=== PATIENT | female | born 1990 | race Caucasian/White ===

== ENCOUNTER 2020-12-30 15:41 | Inpatient (IN) ==
[2020-12-30] MEDS ORDERED: SODIUM CHLORIDE 0.9% 1000ML 500 ML IV ONE (16:00)
[2020-12-30] MEDS ORDERED: dexAMETHasone**PF** 10 MG/ML VIAL IV ONE (16:00)
--- NOTE | 2020-12-30 16:04 | Emergency Department Note ---
Impression & Plan Hypoxia, COVID-19, Pneumonia ED Provider Note NAME: CAROL ANN LANDA AGE: 30 SEX: F : 1990 ARRIVES VIA: Walk-In INFORMANT: Patient ED PROVIDER(S): Srinath Marcelino DO CHIEF COMPLAINT: cough shortness of breath HPI: Patient is a 30-year-old female who presents the ER for cough and shortness of breath. Symptoms started 10 days ago. She is vaccinated and was tested for Covid and was positive. She notes her shortness of breath and trouble breathing has been getting significantly worse. She admits to fevers intermittently. Denies any belly pain, dysuria, urgency, or frequency. She was vaccinated with moderna. Rest does improve her symptoms and moving around makes him significantly worse. No history of COPD or asthma. ROS: See above HPI for pertinent positives & negatives. A total of 10 systems reviewed and were otherwise negative. PAST MEDICAL HISTORY:See Below PAST SURGICAL HISTORY:See Below FAMILY HISTORY:See Below SOCIAL HISTORY:See Below HOME MEDICATIONS:See Below ALLERGIES:See Below VITALS:See Below PHYSICAL EXAMINATION: GENERAL: Sitting up in bed, alert, ill-appearing, disheveled, moderate distress EYE EXAM: normal conjunctiva. PERRL and EOM's grossly intact. OROPHARYNX: mask in place LUNGS: Clear to auscultation. Normal chest wall mechanics HEART: no murmurs, S1 normal and S2 normal ABDOMEN: abdomen soft, non-tender, normo-active bowel sounds, no masses, no rebound or guarding. UPPER EXTREMITIES: upper extremities are grossly normal. LOWER EXTREMITIES: No pitting edema. Calves are equal bilateral NEURO EXAM: Normal sensorium, cranial nerves II-XII grossly intact, normal speech, no gross weakness of arms, no gross weakness of legs. MEDICAL DECISION MAKING: Patient is a 30-year-old female who presents the ER in respiratory distress. IV was established blood work was obtained. She found to be hypoxic at 80% on room air. She is vaccinated for Covid. She is tachycardic and tachypneic. She is placed on high flow nasal cannula after anoxia mass which was not maintaining oxygen saturations. Labs show no significant leukocytosis or anemia. BMP with slightly elevated sugar at 377. She was given IV insulin trend down to 54. Bilirubin LFTs was unremarkable. Troponin was negative. Lipase was normal. She Covid positive. Chest x-ray with bilateral infiltrates. She was given Dec adron and a small amount of fluids. She was updated bedside. Discussed with hospitalist patient was admitted for further work-up of her COVID-19 bilateral pneumonia and hypoxia. She did refuse to prone while she was in the ER per respiratory. Triage Nursing notes reviewed. Limited review of prior medical records performed Vital Signs: reviewed and remarkable for tachycardic, tachypneic and hypoxic Differential diagnosis: Differential diagnoses includes but is not limited to pneumonia, bronchitis, COPD/Asthma exacerbation, pneumothorax, pulmonary embolism, congestive heart failure, acute coronary syndrome ER treatment provided: See below Diagnostics interpreted by me: ECG: Sinus rhythm rate [address] ST depressions and T wave inversions in lead III QTC 449 septal Q waves Cardiac Monitoring: An order was placed for continuous cardiac monitoring. The monitor shows a rate of 92 with sinus rhythm. Laboratory studies: As stated above and show below. Imaging studies: Portable AP upright 1 view of the chest shows bilateral infiltrates Consultation(s): Discussed with Dr. Ivan Garcia for further evaluation Procedures: none Critical Care: I have personally spent 45 minutes of critical care time in the direct management of this patient. This includes bedside care, interpretation of diagnostic studies, and testing, discussion with consultants, patient, and family members, and other required patient management activities. This 45 minutes is in excess of all separately billable procedures. Past Med/Surg History Medical History Anxiety Anxiety disorder Cough Diabetes mellitus type 2, uncontrolled Dyslipidemia Heterozygous factor V Leiden mutation Low back pain Obesity PCOS (polycystic ovarian syndrome) Surgical History History of knee surgery Right Meniscus repaired 2009, Left Meniscus repaired 2013 History of tonsillectomy and adenoidectomy 2001 APPROX Family History Mother Depression Diabetes History of factor V Leiden mutation Ovarian cyst Grandmother (Maternal) Diabetes Grandmother (Paternal) Diabetes Father Hypertension Grandfather (Paternal) Myocardial infarction Denies family history of Ovarian cancer Prostate cancer Breast cancer Colorectal cancer Social History Smoking Status: Never smoker Second Hand Exposure: Yes; Hx Alcohol Use: Yes Hx Substance Use: No Preferred Language: Dutch Communication Ability: Effective Visual Impairment: No Limitations Hearing Ability: Normal Scrap Hooker Required: No marital status: Single Current Living Situation: Parent current occupational status: employed current occupation: [employer] Feels Safe at Home: Yes Childhood Exposure to Second-Hand Smoke: Yes Dental Care, Regularly: No Physical Activity Frequency: 3-4 Times per Week Seatbelt Use: always Sunscreen Use: Yes Allergies Allergies Allergy/AdvReac Type Severity Reaction Status Date / Time Cephalosporins Allergy Severe Hives Verified 12/30/20 18:51 cinnamon Allergy Severe Hives Verified 12/30/20 18:51 doxycycline Allergy Severe Hives Verified 12/30/20 18:51 moxifloxacin Allergy Severe HIVES Verified 12/30/20 18:51 guaifenesin [From Mucinex] Allergy Mild Unknown Verified 12/30/20 18:51 azithromycin AdvReac Unknown Verified 12/30/20 18:51 baclofen AdvReac tired and Verified 12/30/20 18:51 fatigue Home Meds Home Medications Medication Instructions Recorded Confirmed albuterol sulfate 90 mcg/actuation 2 puffs INHALATION Q4H PRN 03/30/19 12/30/20 aerosol inhaler lorazepam 0.5 mg tablet 0.5 mg PO DAILY PRN tab 08/17/20 12/30/20 Previous Rx's Medication Instructions Recorded lancets 33 gauge (OneTouch Delica #100 ea 03/05/19 Lancets) blood sugar diagnostic (Oneuch #180 ea 04/16/19 Verio test strips) cetirizine 10 mg tablet (Zyrtec) 10 mg PO DAILY #30 tab 11/03/19 glipizide 10 mg tablet 10 mg PO BID #180 tab 04/16/20 metformin 500 mg tablet,extended 1,000 mg PO BID #360 tab 04/16/20 release 24 hr levothyroxine 25 mcg tablet 25 mcg PO QAM #90 tab 04/23/20 fluticasone propionate 50 2 spray INTNAS DAILY #9.9 ml 07/06/20 mcg/actuation nasal spray,suspension (Flonase Allergy Relief) venlafaxine 75 mg capsule,extended 75 mg PO DAILY #90 cap 10/28/20 release 24 hr albuterol sulfate 90 mcg/actuation 2 puffs INH Q4H PRN #8.5 g 10/10/21 aerosol inhaler benzonatate 100 mg capsule 100 mg PO TID PRN #30 cap 12/29/20 (Tesstephenie Vizcaino) methylprednisolone 4 mg tablets in 4 mg PO DAILY #21 ea 12/29/20 a dose pack (Medrol (Thom)) Results & Data (ED) Vital Signs Vital Signs - 24 hr 12/30/20 15:47 12/30/20 16:25 12/30/20 16:34 Temperature 36.2 C L Temperature Source Temporal Artery Scan Pulse Rate 119 H Pulse Rate [Apical] 96 H Respiratory Rate 26 H 24 Respiratory Effort / Characteristics Blood Pressure 149/92 H Blood Pressure Mean 111 Pulse Oximetry 83 L 92 90 Oxygen Delivery Method Room Air Oxymask Oxymask Oxygen Flow Rate 5 6 Fraction of Inspired Oxygen Sepsis Recent Fever Within 48 Hours No Sepsis New/Unexplained Change in Mental Status No Sepsis Action Taken by Nursing Physician Notified 12/30/20 17:04 12/30/20 17:16 12/30/20 17:21 Temperature Temperature Source Pulse Rate Pulse Rate [Apical] 106 H 96 H Respiratory Rate 22 16 Respiratory Effort / Characteristics Non-Labored Spontaneous Blood Pressure Blood Pressure Mean Pulse Oximetry 89 L 90 91 Oxygen Delivery Method Oxymask High Flow Nasal Cannula Oxygen Flow Rate 11 50 50 Fraction of Inspired Oxygen 75 90 Sepsis Recent Fever Within 48 Hours Sepsis New/Unexplained Change in Mental Status Sepsis Action Taken by Nursing 12/30/20 19:08 12/30/20 19:47 Temperature Temperature Source Pulse Rate Pulse Rate [Apical] 103 H 111 H Respiratory Rate 20 20 Respiratory Effort / Characteristics Spontaneous Blood Pressure Blood Pressure Mean Pulse Oximetry 92 86 L Oxygen Delivery Method High Flow Nasal Cannula High Flow Nasal Cannula Oxygen Flow Rate 50 Fraction of Inspired Oxygen 90 Sepsis Recent Fever Within 48 Hours Sepsis New/Unexplained Change in Mental Status Sepsis Action Taken by Nursing Laboratory Data Result diagrams: 12/30/20 16:14 12/30/20 16:14 Lab Results 12/30/20 12/30/20 12/30/20 Range/Units 16:13 16:13 16:14 WBC 4.81 (4.8-10.8) K/uL RBC 5.32 (4.2-5.4) M/uL Hgb 15.2 (12.0-16.0) g/dL Hct 44.7 (37-47) % MCV 84.0 (80-100) fL MCH 28.6 (25-34) pg MCHC 34.0 (32-36) g/dL RDW Std Deviation 40.5 (36.4-46.3) fL RDW Coeff of Arnoldo 13.1 (11.5-14.5) % Plt Count 256 (130-400) K/uL MPV 9.9 (7.4-10.4) fL Immature Gran % (Auto) 0.8 % Neut % (Auto) 81.3 % Lymph % (Auto) 13.5 % [place] % (Auto) 4.4 % Eos % (Auto) 0.0 % Baso % (Auto) 0.0 % Neut # (Auto) 3.91 (1.4-6.5) K/uL Lymph # (Auto) 0.65 L (1.2-3.4) K/uL [place] # (Auto) 0.21 (0.11-0.59) K/uL Eos # (Auto) 0.00 (0-0.5) K/uL Baso # (Auto) 0.00 (0-0.2) K/uL Immature Gran # (Auto) 0.04 H (0.00-0.02) K/uL APTT (21.0-31.0) Seconds PTT Ratio Sodium (136-145) mmol/L Potassium (3.5-5.1) mmol/L Chloride (98-107) mmol/L Carbon Dioxide (21-32) mmol/L Anion Gap (3-11) BUN (7-18) mg/dl Creatinine (0.6-1.2) mg/dl Est Cr Clr Drug Dosing Est GFR ( Amer) ml/min Est GFR (Non-Af Amer) ml/min BUN/Creatinine Ratio (10-20) Glucose (70-99) mg/dl POC Glucose (70-99) mg/dl Calcium (8.5-10.1) mg/dl Phosphorus (2.5-4.9) mg/dl Magnesium (1.8-2.4) mg/dl Total Bilirubin (0.2-1) mg/dl AST (15-37) U/L ALT (12-78) U/L Alkaline Phosphatase (45-117) U/L Troponin I (0-0.045) ng/ml C-Reactive Protein (0-0.29) mg/dl Total Protein (6.4-8.2) gm/dl Albumin (3.4-5.0) gm/dl Globulin (2.5-4.0) gm/dl Albumin/Globulin Ratio (0.9-2) Lipase (73-393) U/L Beta-Hydroxybutyric Acd (0.2-2.81) mg/dl Procalcitonin (0-0.5) ng/ml TSH (0.300-4.500) uIu/ml COVID-19 Eval Order Covid19 at [facility] SARS-CoV-2 (PCR) POSITIVE A* (Negative) 12/30/20 12/30/20 12/30/20 Range/Units 16:14 16:14 16:14 WBC (4.8-10.8) K/uL RBC (4.2-5.4) M/uL Hgb (12.0-16.0) g/dL Hct (37-47) % MCV (80-100) fL MCH (25-34) pg MCHC (32-36) g/dL RDW Std Deviation (36.4-46.3) fL RDW Coeff of Arnoldo (11.5-14.5) % Plt Count (130-400) K/uL MPV (7.4-10.4) fL Immature Gran % (Auto) % Neut % (Auto) % Lymph % (Auto) % [place] % (Auto) % Eos % (Auto) % Baso % (Auto) % Neut # (Auto) (1.4-6.5) K/uL Lymph # (Auto) (1.2-3.4) K/uL [place] # (Auto) (0.11-0.59) K/uL Eos # (Auto) (0-0.5) K/uL Baso # (Auto) (0-0.2) K/uL Immature Gran # (Auto) (0.00-0.02) K/uL APTT 24.8 (21.0-31.0) Seconds PTT Ratio 0.9 Sodium 136 (136-145) mmol/L Potassium 4.1 (3.5-5.1) mmol/L Chloride 103 (98-107) mmol/L Carbon Dioxide 22 (21-32) mmol/L Anion Gap 11.0 (3-11) BUN 15 (7-18) mg/dl Creatinine 0.70 (0.6-1.2) mg/dl Est Cr Clr Drug Dosing Not Reportable Est GFR ( Amer) 132.9 ml/min Est GFR (Non-Af Amer) 114.6 ml/min BUN/Creatinine Ratio 20.7 H (10-20) Glucose 377 H* (70-99) mg/dl POC Glucose (70-99) mg/dl Calcium 9.7 (8.5-10.1) mg/dl Phosphorus 4.1 (2.5-4.9) mg/dl Magnesium 2.3 (1.8-2.4) mg/dl Total Bilirubin 0.6 (0.2-1) mg/dl AST 21 (15-37) U/L ALT 37 (12-78) U/L Alkaline Phosphatase 216 H (45-117) U/L Troponin I < 0.015 (0-0.045) ng/ml C-Reactive Protein 13.10 H (0-0.29) mg/dl Total Protein 8.3 H (6.4-8.2) gm/dl Albumin 2.9 L (3.4-5.0) gm/dl Globulin 5.4 H (2.5-4.0) gm/dl Albumin/Globulin Ratio 0.5 L (0.9-2) Lipase 164 (73-393) U/L Beta-Hydroxybutyric Acd 20.33 H (0.2-2.81) mg/dl Procalcitonin (0-0.5) ng/ml TSH 1.330 (0.300-4.500) uIu/ml COVID-19 Eval Order SARS-CoV-2 (PCR) (Negative) 12/30/20 12/30/20 12/30/20 Range/Units 16:14 17:48 19:01 WBC (4.8-10.8) K/uL RBC (4.2-5.4) M/uL Hgb (12.0-16.0) g/dL Hct (37-47) % MCV (80-100) fL MCH (25-34) pg MCHC (32-36) g/dL RDW Std Deviation (36.4-46.3) fL RDW Coeff of Arnoldo (11.5-14.5) % Plt Count (130-400) K/uL MPV (7.4-10.4) fL Immature Gran % (Auto) % Neut % (Auto) % Lymph % (Auto) % [place] % (Auto) % Eos % (Auto) % Baso % (Auto) % Neut # (Auto) (1.4-6.5) K/uL Lymph # (Auto) (1.2-3.4) K/uL [place] # (Auto) (0.11-0.59) K/uL Eos # (Auto) (0-0.5) K/uL Baso # (Auto) (0-0.2) K/uL Immature Gran # (Auto) (0.00-0.02) K/uL APTT (21.0-31.0) Seconds PTT Ratio Sodium (136-145) mmol/L Potassium (3.5-5.1) mmol/L Chloride (98-107) mmol/L Carbon Dioxide (21-32) mmol/L Anion Gap (3-11) BUN (7-18) mg/dl Creatinine (0.6-1.2) mg/dl Est Cr Clr Drug Dosing Est GFR ( Amer) ml/min Est GFR (Non-Af Amer) ml/min BUN/Creatinine Ratio (10-20) Glucose (70-99) mg/dl POC Glucose 254 H 255 H (70-99) mg/dl Calcium (8.5-10.1) mg/dl Phosphorus (2.5-4.9) mg/dl Magnesium (1.8-2.4) mg/dl Total Bilirubin (0.2-1) mg/dl AST (15-37) U/L ALT (12-78) U/L Alkaline Phosphatase (45-117) U/L Troponin I (0-0.045) ng/ml C-Reactive Protein (0-0.29) mg/dl Total Protein (6.4-8.2) gm/dl Albumin (3.4-5.0) gm/dl Globulin (2.5-4.0) gm/dl Albumin/Globulin Ratio (0.9-2) Lipase (73-393) U/L Beta-Hydroxybutyric Acd (0.2-2.81) mg/dl Procalcitonin 0.21 (0-0.5) ng/ml TSH (0.300-4.500) uIu/ml COVID-19 Eval Order SARS-CoV-2 (PCR) (Negative) 12/30/20 Range/Units 20:39 WBC (4.8-10.8) K/uL RBC (4.2-5.4) M/uL Hgb (12.0-16.0) g/dL Hct (37-47) % MCV (80-100) fL MCH (25-34) pg MCHC (32-36) g/dL RDW Std Deviation (36.4-46.3) fL RDW Coeff of Arnoldo (11.5-14.5) % Plt Count (130-400) K/uL MPV (7.4-10.4) fL Immature Gran % (Auto) % Neut % (Auto) % Lymph % (Auto) % [place] % (Auto) % Eos % (Auto) % Baso % (Auto) % Neut # (Auto) (1.4-6.5) K/uL Lymph # (Auto) (1.2-3.4) K/uL [place] # (Auto) (0.11-0.59) K/uL Eos # (Auto) (0-0.5) K/uL Baso # (Auto) (0-0.2) K/uL Immature Gran # (Auto) (0.00-0.02) K/uL APTT (21.0-31.0) Seconds PTT Ratio Sodium (136-145) mmol/L Potassium (3.5-5.1) mmol/L Chloride (98-107) mmol/L Carbon Dioxide (21-32) mmol/L Anion Gap (3-11) BUN (7-18) mg/dl Creatinine (0.6-1.2) mg/dl Est Cr Clr Drug Dosing Est GFR ( Amer) ml/min Est GFR (Non-Af Amer) ml/min BUN/Creatinine Ratio (10-20) Glucose (70-99) mg/dl POC Glucose 254 H (70-99) mg/dl Calcium (8.5-10.1) mg/dl Phosphorus (2.5-4.9) mg/dl Magnesium (1.8-2.4) mg/dl Total Bilirubin (0.2-1) mg/dl AST (15-37) U/L ALT (12-78) U/L Alkaline Phosphatase (45-117) U/L Troponin I (0-0.045) ng/ml C-Reactive Protein (0-0.29) mg/dl Total Protein (6.4-8.2) gm/dl Albumin (3.4-5.0) gm/dl Globulin (2.5-4.0) gm/dl Albumin/Globulin Ratio (0.9-2) Lipase (73-393) U/L Beta-Hydroxybutyric Acd (0.2-2.81) mg/dl Procalcitonin (0-0.5) ng/ml TSH (0.300-4.500) uIu/ml COVID-19 Eval Order SARS-CoV-2 (PCR) (Negative) Administered Medications Baricitinib (Baricitinib 2 Mg Tab) 4 mg PO DAILY ARNOL Stop: 01/13/21 20:14 Last Admin: 12/30/20 20:44 Dose: 4 mg Documented by: [id number] Insulin Human Regular 250 (units/ Sodium Chloride) 250 mls @ 5.5 mls/hr IV .Q24H ARNOL; Protocol Stop: 01/29/21 17:29 Last Titration: 12/30/20 19:16 Dose: 5.5 units/hr, 5.5 mls/hr Documented by: [id number] Cosigned by: [id number] Admin: 12/30/20 18:10 Dose: 4.6 units/hr, 4.6 mls/hr Documented by: [id number] Cosigned by: [id number] Discontinued Medications Dexamethasone Sodium Phosphate (DexamethasonePf 10 Mg/Ml Vial) 8 mg IV NOW ONE Stop: 12/30/20 16:01 Last Admin: 12/30/20 16:23 Dose: 8 mg Documented by: [id number] Sodium Chloride (Nss 1000ml) 500 mls @ 999 mls/hr IV .Q31M ONE Stop: 12/30/20 16:30 Last Infusion: 12/30/20 17:04 Dose: 0 mls/hr Documented by: [id number] Admin: 12/30/20 16:23 Dose: 999 mls/hr Documented by: [id number] Remdesivir 200 mg/ Sodium (Chloride) 250 mls @ 125 mls/hr IV ONE ONE; Protocol Stop: 12/30/20 20:44 Last Infusion: 12/30/20 20:09 Dose: 0 mls/hr Documented by: [id number] Admin: 12/30/20 19:44 Dose: 125 mls/hr Documented by: [id number] Insulin Human Regular (Novolin-R Bolus From Bag) 4.5 units IV ONE ONE Stop: 12/30/20 17:31 Last Admin: 12/30/20 18:11 Dose: 4.5 units Documented by: [id number] Cosigned by: [id number] Insulin Human Regular (Novolin-R Insulin Per Unit Charge) 4 units IV NOW STA Stop: 12/30/20 17:35 Last Admin: 12/30/20 18:10 Dose: Not Given Documented by: [id number] Sodium Chloride (Sodium Chloride 0.9% 10ml Flush) 30 ml IV Q24H ARNOL Stop: 01/03/21 18:46 Last Admin: 12/30/20 20:24 Dose: 30 ml Documented by: [id number] Imaging Data Radiologist's Impression: Chest X-Ray 12/30/20 16:00 XR chest 1V portable HISTORY: Atypical Chest Pain COMPARISON: Chest 03/30/2019. FINDINGS: No pneumothorax. No pleural effusions. The heart remains mildly enlarged. There are extensive patchy perihilar airspace opacities. There are low lung volumes. IMPRESSION: Extensive bilateral airspace opacities likely representing a viral pneumonia. ACT 112: Negative or not required by law. Electronically signed by: Rufus Kumar M.D. 12/30/2020 4:57 PM Discharge Plan Visit Data Chief Complaint: Shortness of Breath/Dyspnea Stated Complaint: COVID, CANT BREATHE ED Provider: Srinath Marcelino Discharge Problem: Hypoxia, COVID-19, Pneumonia Forms Stand Alone Forms: My [facility] Prescriptions Prescriptions: No Action cetirizine [Zyrtec] 10 mg tablet 10 mg PO DAILY Qty: 30 RF: 3 levothyroxine 25 mcg tablet 25 mcg PO QAM Qty: 90 RF: 0 venlafaxine 75 mg capsule,extended release 24hr 75 mg PO DAILY Qty: 90 RF: 1 methylprednisolone [Medrol (Thom)] 4 mg tablets,dose pack 4 mg PO DAILY Qty: 21 RF: 0 benzonatate [Tessalon Perles] 100 mg capsule 100 mg PO TID PRN (Reason: cough) Qty: 30 RF: 0 fluticasone propionate [Flonase Allergy Relief] 50 mcg/actuation spray,suspension 2 spray INTNAS DAILY Qty: 9.9 RF: 3 (DME) OneTouch Verio test strips Strip See Rx Instructions .ROUTE .MEDSUPPLY Qty: 180 RF: 3 glipizide 10 mg tablet 10 mg PO BID Qty: 180 RF: 3 metformin 500 mg tablet extended release 24 hr 1,000 mg PO BID Qty: 360 RF: 3 lorazepam 0.5 mg tablet 0.5 mg PO DAILY PRN (Reason: Anxiety) RF: 0 (DME) lancets [OneTouch Delica Lancets] 33 gauge misc See Dose Instructions .ROUTE .MEDSUPPLY Qty: 100 RF: 0 albuterol sulfate 90 mcg/actuation HFA aerosol inhaler 2 puffs inhalation Q4H PRN (Reason: Shortness Of Breath Or Wheezing) RF: 0 albuterol sulfate 90 mcg/actuation HFA aerosol inhaler 2 puffs INH Q4H PRN (Reason: cough) Qty: 8.5 RF: 0 Referrals Referrals: Pinky Webb MD [Primary Care Provider] - Discharge Problem: Pneumonia Qualifiers: Pneumonia type: due to unspecified organism Laterality: bilateral Lung locati on: unspecified part of lung Qualified Code(s): J18.9 - Pneumonia, unspecified organism
[2020-12-30 16:33] LABS: Hematocrit (blood only) 44.7 % (37-47); Hemoglobin 15.2 g/dL (12.0-16.0); Immature Granulocytes # (auto) 0.04 K/uL (0.00-0.02); Immature Granulocytes % (auto) 0.8 %; Lymphocytes # (auto) 0.65 K/uL (1.2-3.4); Lymphocytes % (auto) 13.5 %; Mean Corpuscular Hemoglobin 28.6 pg (25-34); Mean Platelet Volume 9.9 fL (7.4-10.4); Monocytes # (auto) 0.21 K/uL (0.11-0.59); Monocytes % (auto) 4.4 %; Neutrophils # (auto) 3.91 K/uL (1.4-6.5); Neutrophils % (auto) 81.3 %; Platelet Count 256 K/uL (130-400); RDW Coefficient of Variation 13.1 % (11.5-14.5); RDW Standard Deviation 40.5 fL (36.4-46.3); Red Blood Count 5.32 M/uL (4.2-5.4); White Blood Count 4.81 K/uL (4.8-10.8)
[2020-12-30 16:49] LABS: Partial Thromboplastin Ratio 0.9; Partial Thromboplastin Time 24.8 Seconds (21.0-31.0)
--- NOTE | 2020-12-30 16:59 | XRay Report ---
XR chest 1V portable HISTORY: Atypical Chest Pain COMPARISON: Chest 03/30/2019. FINDINGS: No pneumothorax. No pleural effusions. The heart remains mildly enlarged. There are extensi ve patchy perihilar airspace opacities. There are low lung volumes. IMPRESSION: Extensive bilateral airspace opacities likely representing a viral pneumonia. ACT 112: Negative or not required by law. Electronically signed by: Rufus Kumar M.D. 12/30/2020 4:57 PM
[2020-12-30 17:03] LABS: Alanine Aminotransferase 37 U/L (12-78); Albumin Globulin Ratio 0.5 (0.9-2); Albumin Level 2.9 gm/dl (3.4-5.0); Alkaline Phosphatase 216 U/L (45-117); Aspartate Aminotransferase 21 U/L (15-37); BUN Creatinine Ratio 20.7 (10-20); Bilirubin,Total 0.6 mg/dl (0.2-1); Blood Urea Nitrogen 15 mg/dl (7-18); Calcium 9.7 mg/dl (8.5-10.1); Carbon Dioxide 22 mmol/L (21-32); Chloride 103 mmol/L (98-107); Est GFR (African American) 132.9 ml/min; Est GFR (Non-African American) 114.6 ml/min; Globulin 5.4 gm/dl (2.5-4.0); Glucose 377 mg/dl (70-99); Lipase 164 U/L (73-393); Potassium 4.1 mmol/L (3.5-5.1); Sodium 136 mmol/L (136-145); Total Protein 8.3 gm/dl (6.4-8.2); Troponin I < 0.015 ng/ml (0-0.045)
[2020-12-30 17:17] LABS: Beta-Hydroxybutyrate 20.33 mg/dl (0.2-2.81)
[2020-12-30] MEDS ORDERED: INSULIN PROTOCOL GOAL RANGE ONE (17:22)
[2020-12-30] MEDS ORDERED: STAT IV Infusion **Titration per Protocol STA ×2 (17:22→17:24)
[2020-12-30] MEDS ORDERED: SEVERE STRESS LEVEL ONE (17:24)
[2020-12-30] MEDS ORDERED: GLUCOSE 10 TABS/TUBE PO PRN (17:30)
[2020-12-30] MEDS ORDERED: GLUCAGON FOR INJ 1 MG VIAL IM PRN (17:30)
[2020-12-30] MEDS ORDERED: DEXTROSE 50% 50 ML SYRINGE IV PRN (17:30)
[2020-12-30] MEDS ORDERED: GLUCOSE 40% GEL 15 GM TUBE PO PRN (17:30)
[2020-12-30] MEDS ORDERED: NovoLIN-R BOLUS FROM BAG IV ONE (17:30)
--- NOTE | 2020-12-30 17:32 | History & Physical Report ---
Date of Service December 30, 2020 Assessment & Plan (1) Acute respiratory failure with hypoxia: Plan: 30 y/o covid vaccinated female w/ morbid obesity who presents w/ covid pneumonia on day 10 of symptoms. - desat to 83 on room air, ~90 on high flow nasal cannula 12L at time of exam - cxr w/ extensive bilat airspace opacities suggestive of viral pneumonia. no CT chest ordered at this time. repeat cxr ordered for AM - IV dexamethasone 6 daily - considered Remdesivir, as onset of symptoms was on 12/18/20. - meets criteria for Baracitinib; CRP 13.10. consulted pulmonology - considered Mucinex; patient has unknown mild allergy listed, will need to clarify (2) COVID-19: Plan: - see above - no concern for superimposed bacterial infection at this time; patient does have multiple abx allergies (3) Diabetes mellitus type 2, uncontrolled: Plan: - BSG in the 300s and serum ketones elevated. no anion gap - glycemic consult - insulin drip, goal BSG 140-180 - hold home PO regimen (4) Heterozygous factor V Leiden mutation: Plan: - no prior VTE hx - slightly elevated VTE risk at baseline; prior to starting Baracitinib, discussed w/ pulm and pharmacy (5) Hypothyroidism: Plan: - continue home levothyroxine (6) Obesity: Plan: - chronic (7) PCOS (polycystic ovarian syndrome): Plan: - chronic (8) Anxiety disorder: Plan: - continue home venlafaxine Plan: FEN/GI: DM2. No maintenance IV fluids. ppx: Lovenox 40mg SQ BID (120.6kg, 40.4 BMI) code: full dispo: PCU Admission and Anticipated Discharge Date Admission Date: I personally saw and examined the patient. I verified all underwood points and agree with Resident physician Dr Deepak Osorio with the following exceptions and/or additions: 30 year old female presents to the ER with COVID-19 pneumonia. Vaccinated with Moderna vaccine with second dose given in May. 9-10 days through illness. O/E resting comfortably now on high flow O2, Using accessory muscles, able to speak in complete sentences. Fine crackles throughout. A/P COVID-19 pneumonia - Dexamethasone 6mg IV daily. Initially remdesivir ordered but discontinued on consultation with pulmonology. Consult pulmonology for baricitinib authorization. Acute hypoxic respiratory failure - high flow O2 to aim sats > 90%. Procalcitonin negative. Low tolerance for CT for PE if she declines although given CXR findings and elevated CRP suspect this is all COVID PNA with ARDS. T2DM - given glucose already 377 prior to steroids given elect to give insulin drip for initial control and switch to basal bolus tomorrow once controlled. Aim BSG 140-180 due to critical illness. VTE Prophylaxis - Lovenox 40 mg SQ BID Full code History of Present Illness Chief Complaint: COVID pneumonia Primary Care Provider: Pinky Irby MD Anita Esparza is a 30 y/o female w/ PMHx of obesity, PCOS, rosacea, heterozygous factor V Leiden, HLD, uncontrolled DM2, anxiety/depression, and hypothyroidism who presents w/ worsening cough and dyspnea x 10 days. Patient is vaccinated w/ Moderna and tested covid positive. She initially started w/ sinus symptoms. Several days later, she developed fevers up to 104F. Fevers resolved 2 days ago. In the past several days, her complaint has been worsening dyspnea on exertion. Cough is nonproductive and has improved slightly. + decreased smell, but regaining. She has had poor appetite and has stopped taking her PO diabetes medications for almost a week. She has taken ~1 day of Medrol dose pack in the outpatient setting after seeing her PCP via telehealth yesterday. Denies hx of COPD and has never smoked tobacco. Patient's listed asthma is situational and mostly related to environment triggers specifically cinnamon. S/p dose of 8mg IV dexamethasone in ED. Allergies Allergy/AdvReac Type Severity Reaction Status Date / Time Cephalosporins Allergy Severe Hives Verified 12/30/20 18:51 cinnamon Allergy Severe Hives Verified 12/30/20 18:51 doxycycline Allergy Severe Hives Verified 12/30/20 18:51 moxifloxacin Allergy Severe HIVES Verified 12/30/20 18:51 guaifenesin [From Mucinex] Allergy Mild Unknown Verified 12/30/20 18:51 azithromycin AdvReac Unknown Verified 12/30/20 18:51 baclofen AdvReac tired and Verified 12/30/20 18:51 fatigue Home Medications Medication Instructions Recorded Confirmed Type lancets 33 gauge (OneTouch Delica #100 ea 03/05/19 10/01/20 Rx Lancets) albuterol sulfate 90 mcg/actuation 2 puffs INHALATION Q4H PRN 03/30/19 12/30/20 History aerosol inhaler blood sugar diagnostic (OneTouch #180 ea 04/16/19 10/01/20 Rx Verio test strips) cetirizine 10 mg tablet (Zyrtec) 10 mg PO DAILY #30 tab 11/03/19 12/30/20 Rx glipizide 10 mg tablet 10 mg PO BID #180 tab 04/16/20 12/30/20 Rx metformin 500 mg tablet,extended 1,000 mg PO BID #360 tab 04/16/20 12/30/20 Rx release 24 hr levothyroxine 25 mcg tablet 25 mcg PO QAM #90 tab 04/23/20 12/30/20 Rx fluticasone propionate 50 2 spray INTNAS DAILY #9.9 ml 07/06/20 12/30/20 Rx mcg/actuation nasal spray,suspension (Flonase Allergy Relief) lorazepam 0.5 mg tablet 0.5 mg PO DAILY PRN tab 08/17/20 12/30/20 History venlafaxine 75 mg capsule,extended 75 mg PO DAILY #90 cap 10/28/20 12/30/20 Rx release 24 hr albuterol sulfate 90 mcg/actuation 2 puffs INH Q4H PRN #8.5 g 12/26/20 12/30/20 Rx aerosol inhaler benzonatate 100 mg capsule 100 mg PO TID PRN #30 cap 12/29/20 12/30/20 Rx (Parish Vizcaino) methylprednisolone 4 mg tablets in 4 mg PO DAILY #21 ea 12/29/20 12/30/20 Rx a dose pack (Medrol (Thom)) Past Med/Surg History Medical History Anxiety Anxiety disorder Cough Diabetes mellitus type 2, uncontrolled Dyslipidemia Heterozygous factor V Leiden mutation Low back pain Obesity PCOS (polycystic ovarian syndrome) Surgical History History of knee surgery Right Meniscus repaired 2009, Left Meniscus repaired 2013 History of tonsillectomy and adenoidectomy 2000 APPROX Family History Mother Depression Diabetes History of factor V Leiden mutation Ovarian cyst Grandmother (Maternal) Diabetes Grandmother (Paternal) Diabetes Father Hypertension Grandfather (Paternal) Myocardial infarction Denies family history of Ovarian cancer Prostate cancer Breast cancer Colorectal cancer Social History Smoking Status: Never smoker Second Hand Exposure: Yes; Hx Alcohol Use: Yes Alcohol type: beer Hx Substance Use: No Preferred Language: Greek Communication Ability: Effective Visual Impairment: No Limitations Hearing Ability: Normal Optical Effects Line Up Person Required: No Beliefs That Will Affect Care: None marital status: Single Current Living Situation: Spouse current occupational status: employed current occupation: [employer] Other Information That Helps Us Care for You: No Feels Safe at Home: Yes Safety Concerns: Feels Safe At This Time Childhood Exposure to Second-Hand Smoke: Yes Dental Care, Regularly: No Physical Activity Frequency: 3-4 Times per Week Seatbelt Use: always Sunscreen Use: Yes Assistive Devices: Glasses Review of Systems Review of Systems: All systems reviewed & are unremarkable except as noted in HPI & below Constitutional: Subj fever, rigors, chills, since resolved. No recent unintentional wt changes. Eyes: Denies blurry vision, vision changes ENT: + sore throat Cardiovascular: Denies chest pain, palpitations Respiratory: + CARROLL, worse w/ supine. + cough, nonproductive Gastrointestinal: Denies abdominal pain, nausea, vomiting, constipation, diarrhea Genitourinary: Denies urinary symptoms including dysuria Musculoskeletal: Denies weakness, joint aches/pain. Has some back pain and rib pain, attributs to coughing Neurological: Denies headache, numbness, tingling, focal weakness Physical Exam Physical Exam: General: Grossly A&O. NAD. Cooperative. HEENT: Atraumatic, normocephalic. EOMI. PERRL. Erythematous uvula. No exudates. s/p tonsillectomy/adenoidectomy. Pulm: Trace insp crackles at bases. Overall slightly decreased air entry. No accessory muscle use. No respiratory distress. Wearing high flow. Cardiac: RRR, -mrg. Radial pulses intact and symmetrical. Abdominal: Nontender, nondistended, soft. Obese abd, at baseline. Neuro: Normal strength and sensation of extremtiies. Integ: Warm, dry, intact Results & Data Results & Data ([place]) Vital Signs (Past 12 Hours) Vital Signs Temp Pulse Pulse Resp BP Pulse Ox 12/30/20 17:21 91 12/30/20 17:16 96 H 16 90 12/30/20 17:04 106 H 22 89 L 12/30/20 16:34 96 H 24 90 12/30/20 16:25 92 12/30/20 15:47 36.2 C L 119 H 26 H 149/92 H 83 L Laboratory Results tachycardic to 100s. Afebrile. Sats down to 83 on RA, now on HF sat 90 q/ 50% FiO2. No leukocytosis or anemia. Electrolytes ok. Cr 0.70. BSG 380. alk phos 216. trop neg x1. BHA 20.33H 12/30/20 16:14 12/30/20 16:14 Cardiac Enzymes 12/30/20 Range/Units 16:14 AST 21 (15-37) U/L Troponin I < 0.015 (0-0.045) ng/ml Coagulation 12/30/20 Range/Units 16:14 APTT 24.8 (21.0-31.0) Seconds CBC 12/30/20 Range/Units 16:14 WBC 4.81 (4.8-10.8) K/uL RBC 5.32 (4.2-5.4) M/uL Hgb 15.2 (12.0-16.0) g/dL Hct 44.7 (37-47) % Plt Count 256 (130-400) K/uL Neut # (Auto) 3.91 (1.4-6.5) K/uL Lymph # (Auto) 0.65 L (1.2-3.4) K/uL Prentiss # (Auto) 0.21 (0.11-0.59) K/uL Eos # (Auto) 0.00 (0-0.5) K/uL Baso # (Auto) 0.00 (0-0.2) K/uL Comprehensive Metabolic Panel 12/30/20 Range/Units 16:14 Sodium 136 (136-145) mmol/L Potassium 4.1 (3.5-5.1) mmol/L Chloride 103 (98-107) mmol/L Carbon Dioxide 22 (21-32) mmol/L BUN 15 (7-18) mg/dl Creatinine 0.70 (0.6-1.2) mg/dl Glucose 377 H* (70-99) mg/dl Calcium 9.7 (8.5-10.1) mg/dl AST 21 (15-37) U/L ALT 37 (12-78) U/L Alkaline Phosphatase 216 H (45-117) U/L Total Protein 8.3 H (6.4-8.2) gm/dl Albumin 2.9 L (3.4-5.0) gm/dl Intake and Output 12/30/20 12/30/20 12/31/20 14:59 22:59 06:59 Intake Total 557.143 / 584.368 27.225 / 584.368 Balance 557.143 / 584.368 27.225 / 584.368 Intake: IV 557.143 / 584.368 27.225 / 584.368 Insulin Regular 250 units In 5.06 / 32.285 27.225 / 32.285 Sodium Chloride 0.9% 247.5 ml @ 5.5 UNITS/HR 5.5 mls/hr IV . Q24H [facility] Rx#:[id number] Remdesivir 200 mg In Sodium 52.083 / 52.083 Chloride 0.9% 210 ml @ 125 mls/ hr IV ONE ONE Rx#:[id number] Sodium Chloride 0.9% 1000ML 500 500 / 500 ml @ 999 mls/hr IV .Q31M ONE Rx#:[id number] Other: # Unmeasured Voids 1 Weight 120.6 kg Weight Measurement Method Built in [facility] Patient Weight 12/31/20 06:59 Weight 120.6 kg Diagnostic Findings Chest X-Ray 12/30/20 16:00 XR chest 1V portable HISTORY: Atypical Chest Pain COMPARISON: Chest 03/30/2019. FINDINGS: No pneumothorax. No pleural effusions. The heart remains mildly enlarged. There are extensive patchy perihilar airspace opacities. There are low lung volumes. IMPRESSION: Extensive bilateral airspace opacities likely representing a viral pneumonia. ACT 112: Negative or not required by law. Electronically signed by: Rufus Kumar M.D. 12/30/2020 4:57 PM ECG Additional Comments: Vent. Rate : 095 BPM Atrial Rate : 095 BPM P-R Int : 148 ms QRS Dur : 082 ms QT Int : 358 ms P-R-T Axes : 031 -06 000 degrees QTc Int : 449 ms Normal sinus rhythm Septal infarct (cited on or before 24-APR-2009) Possible Inferior infarct (cited on or before 30-MAR-2019) Abnormal ECG When compared with ECG of 30-MAR-2019 19:15, Questionable change in initial forces of Anterior leads Nonspecific T wave abnormality no longer evident in Anterior leads Confirmed by Camacho Alvares ([id number]) on 12/30/2020 10:49:32 PM Code Status & VTE Plan Code Status full VTE Prophylaxis Plan VTE Prophylaxis will be ordered: Yes Resident Activity Tracking Resident Involvement: Resident Care Provided Care Provided: Adult Hospital Medicine
[2020-12-30] MEDS ORDERED: NovoLIN-R INSULIN PER UNIT CHARGE IV STA (17:34)
[2020-12-30 18:06] LABS: C Reactive Protein 13.1 mg/dl (0-0.29); Magnesium 2.3 mg/dl (1.8-2.4); Phosphorus 4.1 mg/dl (2.5-4.9); Thyroid Stimulating Hormone 1.33 uIu/ml (0.300-4.500)
[2020-12-30] MEDS: INSULIN REGULAR 250 UNITS in SODIUM CHLORIDE 0.9% 247.5 ML IV SCH (18:10)
[2020-12-30] MEDS ORDERED: REMDESIVIR 200 MG in SODIUM CHLORIDE 0.9% 210 ML IV ONE (18:45)
[2020-12-30] MEDS ORDERED: SODIUM CHLORIDE 0.9% 10ML FLUSH IV SCH (18:45)
[2020-12-30] MEDS: BARICITINIB 2 MG TAB PO SCH (20:44)
[2020-12-30] MEDS ORDERED: PHARMACY GLYCEMIC MGMT CONSULT PRN (22:30)
--- NOTE | 2020-12-30 22:49 | Electrocardiogram Report ---
Test Reason : Blood Pressure : / mmHG Vent. Rate : 095 BPM Atrial Rate : 095 BPM P-R Int : 148 ms QRS Dur : 082 ms QT Int : 358 ms P-R-T Axes : 031 -06 000 degrees QTc Int : 449 ms Normal sinus rhythm Septal infarct (cited on or before 24-APR-2009) Possible Inferior infarct (cited on or before 30-MAR-2019) Abnormal ECG When compared with ECG of 30-MAR-2019 19:15, Questionable change in initial forces of Anterior leads Nonspecific T wave abnormality no longer evident in Anterior leads Confirmed by Camacho Alvares ([id number]) on 12/30/2020 10:49:32 PM Referred By: Confirmed By:Camacho Alvares
[2020-12-31] MEDS ORDERED: LANTUS PER UNIT CHARGE SQ SCH
[2020-12-31] MEDS: ENOXAPARIN INJ 40 MG/0.4 ML SYR SQ SCH ×3 (00:17→20:23)
[2020-12-31] MEDS: INSULIN ASPART 100 UNITS/ML 3 ML PEN SC SCH ×5 (00:32→21:24)
[2020-12-31] MEDS: SODIUM CHLORIDE 0.9% 10ML FLUSH IV SCH ×2 (00:32→20:17)
[2020-12-31] MEDS: LEVOTHYROXINE SODIUM 25 MCG TABLET PO SCH (06:01)
[2020-12-31 06:24] LABS: Basophils # (auto) 0.01 K/uL (0-0.2); Basophils % (auto) 0.3 %; Hemoglobin 13.1 g/dL (12.0-16.0); Immature Granulocytes # (auto) 0.02 K/uL (0.00-0.02); Immature Granulocytes % (auto) 0.6 %; Lymphocytes # (auto) 0.87 K/uL (1.2-3.4); Lymphocytes % (auto) 24.7 %; Mean Corpuscular Hemoglobin 28.2 pg (25-34); Mean Corpuscular Hgb Conc 33.6 g/dL (32-36); Mean Corpuscular Volume 83.9 fL (80-100); Mean Platelet Volume 9.4 fL (7.4-10.4); Monocytes # (auto) 0.53 K/uL (0.11-0.59); Monocytes % (auto) 15.1 %; Neutrophils # (auto) 2.09 K/uL (1.4-6.5); Neutrophils % (auto) 59.3 %; Platelet Count 271 K/uL (130-400); RDW Standard Deviation 39.1 fL (36.4-46.3); Red Blood Count 4.65 M/uL (4.2-5.4); White Blood Count 3.52 K/uL (4.8-10.8)
[2020-12-31 07:24] LABS: Alanine Aminotransferase 27 U/L (12-78); Albumin Globulin Ratio 0.5 (0.9-2); Albumin Level 2.3 gm/dl (3.4-5.0); Alkaline Phosphatase 161 U/L (45-117); Aspartate Aminotransferase 12 U/L (15-37); BUN Creatinine Ratio 46.6 (10-20); Bilirubin,Total 0.4 mg/dl (0.2-1); Blood Urea Nitrogen 17 mg/dl (7-18); Calcium 8.9 mg/dl (8.5-10.1); Carbon Dioxide 22 mmol/L (21-32); Chloride 108 mmol/L (98-107); Creatinine Clr Calc Pharmacy 298.4 ml/min; Est GFR (African American) > 150.0 ml/min; Est GFR (Non-African American) 141.4 ml/min; Globulin 4.4 gm/dl (2.5-4.0); Glucose 220 mg/dl (70-99); Potassium 3.8 mmol/L (3.5-5.1); Sodium 139 mmol/L (136-145); Total Protein 6.7 gm/dl (6.4-8.2)
[2020-12-31 07:26] LABS: Estimated Average Glucose 280 mg/dl; Hemoglobin A1C 11.4 % (4.5-5.6)
--- NOTE | 2020-12-31 07:38 | XRay Report ---
XR chest 1V portable HISTORY: 30 years-old Female covid pneumonia acute shortness of breath with pneumonia COMPARISON: Chest radiograph 12/30/2020 TECHNIQUE: Portable AP view of the chest FINDINGS: Cardiac silhouette is mildly enlarged, unchanged. Extensive bilateral airspace opacities redemonstrat ed and appear stable to mildly improved. Unchanged mild right hemidiaphragmatic elevation. No acute f racture. Unchanged cortical thickening of the distal right clavicle. IMPRESSION: Stable to mildly improved extensive bilateral airspace opacities compatible with viral pn eumonia. ACT 112: Negative or not required by law. The above report was generated using voice recognition software. It may contain grammatical, syntax o r spelling errors. Electronically signed by: Rc Chao M.D. 12/31/2020 7:36 AM
[2020-12-31] MEDS ORDERED: INSULIN GLARGINE SOLOSTAR 100 UNITS/ML 3 ML PEN SC ONE (09:00)
[2020-12-31] MEDS ORDERED: FUROSEMIDE 20 MG in SYRINGE 0 ML IV ONE (09:05)
[2020-12-31] MEDS: dexAMETHasone 6 MG in SYRINGE 0 ML IV SCH (09:09)
[2020-12-31] MEDS: BARICITINIB 2 MG TAB PO SCH (09:09)
[2020-12-31] MEDS: VENLAFAXINE HCL XR 75 MG CAPXR PO SCH (09:10)
--- NOTE | 2020-12-31 09:17 | Hospitalist Progress Note ---
Date of Service December 31, 2020 Assessment & Plan (1) Acute respiratory failure with hypoxia: Plan: 30 y/o covid vaccinated female w/ morbid obesity who presents w/ covid pneumonia on day 10 of symptoms. - very high oxygen requirement at time of admission, currently at 60L and 100%, she in on her right side, tachypnea, accessory muscle use - will place a mayo, give Lasix 20mg IV, have her lay prone as much as possible will contact [facility] to discuss ECMO qualifications, see if they can take the patient before she gets worse continue treatment for COVID with dexamethasone, baricitinib (2) COVID-19: Plan: Moderna vaccine in April 2020 sick for about 10 days, worsening dyspnea the past 48 hours CXR with diffuse bilateral infiltrates dexamethasone 6mg IV daily baricitinib daily x 14 days Remdesivir per protocol call [facility] about ECMO (3) Diabetes mellitus type 2, uncontrolled: Plan: - BSG in the 300s and serum ketones elevated. no anion gap - glycemic consult - insulin drip, sugars down below 200 diabetic diet plan to transition to basal / bolus insulin regimen (4) Heterozygous factor V Leiden mutation: Plan: - no prior VTE hx - slightly elevated VTE risk at baseline; prior to starting Baracitinib, discussed w/ pulm and pharmacy Lovenox BID (5) Hypothyroidism: Plan: - continue home levothyroxine (6) Obesity: Plan: - chronic (7) PCOS (polycystic ovarian syndrome): Plan: - chronic (8) Anxiety disorder: Plan: - continue home venlafaxine Plan: FEN/GI: DM2. No maintenance IV fluids. 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, there was an outbreak there she is scared and tearful, says she has never been in the hospital before discussed getting mayo catheter so she does not move, don't want her desaturating and unable to recover she has been drinking a lot of fluids at home, no concern for dehydration, will give her a dose of Lasix once mayo in discussed laying prone, RN will get her on her stomach as much as possible, told her it can keep her from deteriorating encouraged her to take it one day at a time, she will be on steroids and baricitinib discussed that I will call [facility] to discuss ECMO with them, see if she qualifies discussed patient with Dr. Stapleton, he agrees with calling about ECMO hopeful that she plateaus at high flow or BIPAP Review of Systems Review of Systems: All systems reviewed & are unremarkable except as noted in Subjective Constitutional: + fatigue and + weakness; no fever, no chills and no sweats Respiratory: + cough, + dyspnea and + dyspnea on exertion; no sputum production Cardiovascular: no chest pain, no palpitations and no edema Gastrointestinal: no abdominal pain, no nausea, no vomiting, no constipation and no diarrhea/loose stools Physical Exam Physical Exam: General: well developed, well nourished, obese female, ill appearing Neck: supple, trachea midline, normal thyroid Lungs: crackles in bases, + tachypnea, + accessory muscle use, + cough Heart: regular S1 and S2, no murmur, peripheral pulses normal, capillary refill normal, no edema Abdomen: soft, NT, ND, + BS, no hepatomegaly, normal to percussion Extremities: normal in appearance, no cyanosis, no petechiae, strength is 5/5 bilaterally Neuro: awake, cooperative, moves all extremities, no focal motor deficits, CN II-XII intact, sensation in extremities intact, normal speech Skin: warm, dry, no rash, normal turgor Psych: Awake, alert oriented x 3, she is nervous and anxious Results & Data Results & Data ([facility]) Vital Signs (Past 12 Hours) Vital Signs Temp Pulse Pulse Pulse Resp BP BP 12/31/20 08:00 36.7 C 91 H 24 114/73 12/31/20 05:54 88 24 12/31/20 03:58 36.8 C 93 H 26 H 144/84 H 12/31/20 03:25 94 H 22 12/31/20 00:36 96 H 18 12/31/20 00:00 99 H 12/30/20 23:15 36.7 C 101 H 16 150/91 H 12/30/20 22:31 99 H 20 12/30/20 22:30 36.9 C 100 H 22 142/92 H 12/30/20 21:38 100 H 20 142/69 H Pulse Ox 12/31/20 08:00 87 L 12/31/20 05:54 88 L 12/31/20 03:58 91 12/31/20 03:25 88 L 12/31/20 00:36 88 L 12/31/20 00:00 12/30/20 23:15 89 L 12/30/20 22:31 89 L 12/30/20 22:30 93 12/30/20 21:38 89 L Laboratory Results Laboratory Results - last 24 hr 12/30/20 12/30/20 12/30/20 16:13 16:13 16:14 WBC 4.81 RBC 5.32 Hgb 15.2 Hct 44.7 MCV 84.0 MCH 28.6 MCHC 34.0 RDW Std Deviation 40.5 RDW Coeff of Arnoldo 13.1 Plt Count 256 MPV 9.9 Immature Gran % (Auto) 0.8 Neut % (Auto) 81.3 Lymph % (Auto) 13.5 Ponce % (Auto) 4.4 Eos % (Auto) 0.0 Baso % (Auto) 0.0 Neut # (Auto) 3.91 Lymph # (Auto) 0.65 L Ponce # (Auto) 0.21 Eos # (Auto) 0.00 Baso # (Auto) 0.00 Immature Gran # (Auto) 0.04 H APTT PTT Ratio Sodium Potassium Chloride Carbon Dioxide Anion Gap BUN Creatinine Est Cr Clr Drug Dosing Est GFR ( Amer) Est GFR (Non-Af Amer) BUN/Creatinine Ratio Glucose POC Glucose Estimat Average Glucose Hemoglobin A1c Calcium Phosphorus Magnesium Total Bilirubin AST ALT Alkaline Phosphatase Troponin I C-Reactive Protein Total Protein Albumin Globulin Albumin/Globulin Ratio Lipase Beta-Hydroxybutyric Acd Procalcitonin TSH COVID-19 Eval Order Covid19 at [facility] SARS-CoV-2 (PCR) POSITIVE A* 12/30/20 12/30/20 12/30/20 16:14 16:14 16:14 WBC RBC Hgb Hct MCV MCH MCHC RDW Std Deviation RDW Coeff of Arnoldo Plt Count MPV Immature Gran % (Auto) Neut % (Auto) Lymph % (Auto) Ponce % (Auto) Eos % (Auto) Baso % (Auto) Neut # (Auto) Lymph # (Auto) Ponce # (Auto) Eos # (Auto) Baso # (Auto) Immature Gran # (Auto) APTT 24.8 PTT Ratio 0.9 Sodium 136 Potassium 4.1 Chloride 103 Carbon Dioxide 22 Anion Gap 11.0 BUN 15 Creatinine 0.70 Est Cr Clr Drug Dosing Not Reportable Est GFR ( Amer) 132.9 Est GFR (Non-Af Amer) 114.6 BUN/Creatinine Ratio 20.7 H Glucose 377 H* POC Glucose Estimat Average Glucose Hemoglobin A1c Calcium 9.7 Phosphorus 4.1 Magnesium 2.3 Total Bilirubin 0.6 AST 21 ALT 37 Alkaline Phosphatase 216 H Troponin I < 0.015 C-Reactive Protein 13.10 H Total Protein 8.3 H Albumin 2.9 L Globulin 5.4 H Albumin/Globulin Ratio 0.5 L Lipase 164 Beta-Hydroxybutyric Acd 20.33 H Procalcitonin TSH 1.330 COVID-19 Eval Order SARS-CoV-2 (PCR) 12/30/20 12/30/20 12/30/20 16:14 16:14 17:48 WBC RBC Hgb Hct MCV MCH MCHC RDW Std Deviation RDW Coeff of Arnoldo Plt Count MPV Immature Gran % (Auto) Neut % (Auto) Lymph % (Auto) Ponce % (Auto) Eos % (Auto) Baso % (Auto) Neut # (Auto) Lymph # (Auto) Ponce # (Auto) Eos # (Auto) Baso # (Auto) Immature Gran # (Auto) APTT PTT Ratio Sodium Potassium Chloride Carbon Dioxide Anion Gap BUN Creatinine Est Cr Clr Drug Dosing Est GFR ( Amer) Est GFR (Non-Af Amer) BUN/Creatinine Ratio Glucose POC Glucose 254 H Estimat Average Glucose 280 Hemoglobin A1c 11.4 H Calcium Phosphorus Magnesium Total Bilirubin AST ALT Alkaline Phosphatase Troponin I C-Reactive Protein Total Protein Albumin Globulin Albumin/Globulin Ratio Lipase Beta-Hydroxybutyric Acd Procalcitonin 0.21 TSH COVID-19 Eval Order SARS-CoV-2 (PCR) 12/30/20 12/30/20 12/30/20 19:01 20:39 22:07 WBC RBC Hgb Hct MCV MCH MCHC RDW Std Deviation RDW Coeff of Arnoldo Plt Count MPV Immature Gran % (Auto) Neut % (Auto) Lymph % (Auto) Ponce % (Auto) Eos % (Auto) Baso % (Auto) Neut # (Auto) Lymph # (Auto) Ponce # (Auto) Eos # (Auto) Baso # (Auto) Immature Gran # (Auto) APTT PTT Ratio Sodium Potassium Chloride Carbon Dioxide Anion Gap BUN Creatinine Est Cr Clr Drug Dosing Est GFR ( Amer) Est GFR (Non-Af Amer) BUN/Creatinine Ratio Glucose POC Glucose 255 H 254 H 266 H Estimat Average Glucose Hemoglobin A1c Calcium Phosphorus Magnesium Total Bilirubin AST ALT Alkaline Phosphatase Troponin I C-Reactive Protein Total Protein Albumin Globulin Albumin/Globulin Ratio Lipase Beta-Hydroxybutyric Acd Procalcitonin [facility] COVID-19 Eval Order SARS-CoV-2 (PCR) 12/30/20 12/31/20 12/31/20 23:09 00:08 01:10 WBC RBC Hgb Hct MCV MCH MCHC RDW Std Deviation RDW Coeff of Arnoldo Plt Count MPV Immature Gran % (Auto) Neut % (Auto) Lymph % (Auto) Ponce % (Auto) Eos % (Auto) Baso % (Auto) Neut # (Auto) Lymph # (Auto) Ponce # (Auto) Eos # (Auto) Baso # (Auto) Immature Gran # (Auto) APTT PTT Ratio Sodium Potassium Chloride Carbon Dioxide Anion Gap BUN Creatinine Est Cr Clr Drug Dosing Est GFR ( Amer) Est GFR (Non-Af Amer) BUN/Creatinine Ratio Glucose POC Glucose 236 H 309 H* 269 H Estimat Average Glucose Hemoglobin A1c Calcium Phosphorus Magnesium Total Bilirubin AST ALT Alkaline Phosphatase Troponin I C-Reactive Protein Total Protein Albumin Globulin Albumin/Globulin Ratio Lipase Beta-Hydroxybutyric Acd Procalcitonin [facility] COVID-19 Eval Order SARS-CoV-2 (PCR) 12/31/20 12/31/20 12/31/20 02:14 04:02 05:59 WBC RBC Hgb Hct MCV MCH MCHC RDW Std Deviation RDW Coeff of Arnoldo Plt Count MPV Immature Gran % (Auto) Neut % (Auto) Lymph % (Auto) Ponce % (Auto) Eos % (Auto) Baso % (Auto) Neut # (Auto) Lymph # (Auto) Ponce # (Auto) Eos # (Auto) Baso # (Auto) Immature Gran # (Auto) APTT PTT Ratio Sodium Potassium Chloride Carbon Dioxide Anion Gap BUN Creatinine Est Cr Clr Drug Dosing Est GFR ( Amer) Est GFR (Non-Af Amer) BUN/Creatinine Ratio Glucose POC Glucose 256 H 238 H 198 H Estimat Average Glucose Hemoglobin A1c Calcium Phosphorus Magnesium Total Bilirubin AST ALT Alkaline Phosphatase Troponin I C-Reactive Protein Total Protein Albumin Globulin Albumin/Globulin Ratio Lipase Beta-Hydroxybutyric Acd Procalcitonin [facility] COVID-19 Eval Order SARS-CoV-2 (PCR) 12/31/20 12/31/20 12/31/20 06:07 06:07 08:04 WBC 3.52 L RBC 4.65 Hgb 13.1 Hct 39.0 MCV 83.9 MCH 28.2 MCHC 33.6 RDW Std Deviation 39.1 RDW Coeff of Arnoldo 13.0 Plt Count 271 MPV 9.4 Immature Gran % (Auto) 0.6 Neut % (Auto) 59.3 Lymph % (Auto) 24.7 Ponce % (Auto) 15.1 Eos % (Auto) 0.0 Baso % (Auto) 0.3 Neut # (Auto) 2.09 Lymph # (Auto) 0.87 L Ponce # (Auto) 0.53 Eos # (Auto) 0.00 Baso # (Auto) 0.01 Immature Gran # (Auto) 0.02 APTT PTT Ratio Sodium 139 Potassium 3.8 Chloride 108 H Carbon Dioxide 22 Anion Gap 10.0 BUN 17 Creatinine 0.37 L D Est Cr Clr Drug Dosing 298.4 Est GFR ( Amer) > 150.0 Est GFR (Non-Af Amer) 141.4 BUN/Creatinine Ratio 46.6 H Glucose 220 H POC Glucose 186 H Estimat Average Glucose Hemoglobin A1c Calcium 8.9 Phosphorus Magnesium Total Bilirubin 0.4 AST 12 L ALT 27 Alkaline Phosphatase 161 H Troponin I C-Reactive Protein Total Protein 6.7 Albumin 2.3 L Globulin 4.4 H Albumin/Globulin Ratio 0.5 L Lipase Beta-Hydroxybutyric Acd Procalcitonin [facility] COVID-19 Eval Order SARS-CoV-2 (PCR) 12/31/20 09:08 WBC RBC Hgb Hct MCV MCH MCHC RDW Std Deviation RDW Coeff of Arnoldo Plt Count MPV Immature Gran % (Auto) Neut % (Auto) Lymph % (Auto) Ponce % (Auto) Eos % (Auto) Baso % (Auto) Neut # (Auto) Lymph # (Auto) Ponce # (Auto) Eos # (Auto) Baso # (Auto) Immature Gran # (Auto) APTT PTT Ratio Sodium Potassium Chloride Carbon Dioxide Anion Gap BUN Creatinine Est Cr Clr Drug Dosing Est GFR ( Amer) Est GFR (Non-Af Amer) BUN/Creatinine Ratio Glucose POC Glucose 171 H Estimat Average Glucose Hemoglobin A1c Calcium Phosphorus Magnesium Total Bilirubin AST ALT Alkaline Phosphatase Troponin I C-Reactive Protein Total Protein Albumin Globulin Albumin/Globulin Ratio Lipase Beta-Hydroxybutyric Acd Procalcitonin TSH COVID-19 Eval Order SARS-CoV-2 (PCR) Medications Administered Current Inpatient Medications Baricitinib (Baricitinib 2 Mg Tab) 4 mg PO DAILY [facility] Stop: 01/13/21 20:14 Last Admin: 12/30/20 20:44 Dose: 4 mg Documented by: Dextrose (Dextrose 50% 50 Ml Syringe) 25 - 50 ml IV UD PRN; Protocol PRN Reason: Hypoglycemia Protocol Stop: 01/29/21 17:29 Enoxaparin Sodium (Enoxaparin Inj 40 Mg/0.4 Ml Syr) 40 mg SQ Q12 [facility] Stop: 01/29/21 22:59 Last Admin: 12/31/20 00:17 Dose: 40 mg Documented by: Glucagon (Glucagon For Inj 1 Mg Vial) 1 mg IM UD PRN; Protocol PRN Reason: Hypoglycemia Protocol Stop: 01/29/21 17:29 Glucose (Glucose 40% Gel 15 Gm Tube) 15 - 30 gm PO UD PRN; Protocol PRN Reason: Hypoglycemia Protocol Stop: 01/29/21 17:29 Glucose (Glucose 10 Tabs/Tube) 4 - 8 tabs PO UD PRN; Protocol PRN Reason: Hypoglycemia Protocol Stop: 01/29/21 17:29 Insulin Human Regular 250 (units/ Sodium Chloride) 250 mls @ 7.7 mls/hr IV .Q24H [facility]; Protocol Stop: 01/29/21 17:29 Last Titration: 12/31/20 07:02 Dose: 7.7 units/hr, 7.7 mls/hr Documented by: Dexamethasone 6 mg/ Syringe 1.5 mls @ 1 mls/min IV Q24H [facility] Stop: 01/30/21 08:59 Furosemide 20 mg/ Syringe 2 mls @ 4 mls/min IV ONE ONE Stop: 12/31/20 09:06 Insulin Aspart (Insulin Aspart 100 Units/Ml 3 Ml Pen) 0 units SC ACHS [facility] Stop: 01/29/21 20:59 Last Admin: 12/31/20 00:32 Dose: Not Given Documented by: Insulin Human NPH (Insulin Human Nph) 35 units SC DAILY@0900 [facility]; Protocol Stop: 01/30/21 08:59 Levothyroxine Sodium (Levothyroxine Sodium 25 Mcg Tablet) 25 mcg PO DAILYBB [facility] Stop: 01/30/21 06:29 Last Admin: 12/31/20 06:01 Dose: 25 mcg Documented by: Miscellaneous (Carbohydrates For Hypoglycemia ) 15 - 30 gm PO PRN PRN PRN Reason: Hypoglycemia Treatment Stop: 01/29/21 17:29 Miscellaneous Information (Pharmacy Glycemic Mgmt Consult) 1 ea N/A UD PRN PRN Reason: Consult Stop: 01/29/21 22:29 Sodium Chloride (Sodium Chloride 0.9% 10ml Flush) 30 ml IV Q24H [facility] Stop: 01/03/21 20:01 Last Admin: 12/31/20 00:32 Dose: Not Given Documented by: Venlafaxine HCl (Venlafaxine Hcl Xr 75 Mg Capxr) 75 mg PO DAILY [facility] Stop: 01/30/21 08:59 PG Care Time/CCT Total # of Minutes Spent Total Time Spent with Patient: Total time spent is greater than 50% in coordinat ion of care (as documented) at patient's floor/unit and/or counseling patient: Coding Level of Care Code 13456 Subseq Hosp Care Lvl 3 Diagnoses Acute respiratory failure with hypoxia J96.01 COVID-19 U07.1 Diabetes mellitus type 2, uncontrolled E11.65 Heterozygous factor V Leiden mutation D68.51 Hypothyroidism E03.9 Obesity E66.9 PCOS (polycystic ovarian syndrome) E28.2 Anxiety disorder F41.9
--- NOTE | 2020-12-31 09:22 | Pulmonary Consultation ---
Date of Consultation December 31, 2020 Assessment & Plan (1) ARDS (adult respiratory distress syndrome): (2) Acute respiratory failure with hypoxia: (3) COVID-19: (4) Obesity: Impression: 30-year-old female with obesity. She is been vaccinated but unfortunately has a breakthrough case of Covid pneumonitis. She has been initiated on dexamethasone and baricitinib. She continues to have significant oxygen requirement. Recommendations: 1. Covid pneumonitis: Continue dexamethasone and baricitinib. 2. Hypoxemic respiratory failure: Had a long discussion with the patient. At this point time the options are to pursue self proning, or transition to BiPAP or potentially intubate the patient and pursue mechanical ventilation. The patient would like to pursue self proning and see how she does. She is open to the idea of revisiting CPAP if needed. 3. Recommend continuing monitoring for secondary infection. No indication for antibiotics currently. 4. Discussed with the primary admitting service. They are going to reach out to see whether or not the patient would be a candidate for ECMO. Unclear if her body mass index would exclude her. 5. DVT prophylaxis per [employer] guidelines. 6. Management of the patient's other medical issues per the primary service. Patient is significantly ill with significant possibility of clinical deterioration. Discussed with respiratory therapy, bedside nurse, and primary admitting service. History of Present Illness Attending Physician: Shashi Ramos DO History of Present Illness Asked by hospitalist to evaluate patient with Covid pneumonia. History is obtained from review electronic medical record as well as discussion with patient at bedside. The patient is a 30-year-old female with a history of obesity, heterozygous factor V Leiden, polycystic ovarian syndrome and diabetes who has had cough and shortness of breath going on for 10 days. Her Covid test was +10/10. She was recently treated by her primary care provider with a Medrol Dosepak. Patient had progressive shortness of breath and presented to the emergency room. She is found to be profoundly hypoxemic. She was initiated on high flow oxygen. An attempt was made to place her on noninvasive positive pressure ventilation however the patient was poorly tolerant of this due to claustrophobia issues. Her CRP was elevated and she met criteria for initiation of baricitinib. Dexamethasone was administered. Procalcitonin was negative. Were consulted for additional evaluation and management. When I saw the patient this morning she is sitting upright. She remains on high flow oxygen. Her oxygen saturations are in the high 80s despite 100% FiO2 at 60 L/min. Allergies Allergy/AdvReac Type Severity Reaction Status Date / Time Cephalosporins Allergy Severe Hives Verified 12/30/20 18:51 cinnamon Allergy Severe Hives Verified 12/30/20 18:51 doxycycline Allergy Severe Hives Verified 12/30/20 18:51 moxifloxacin Allergy Severe HIVES Verified 12/30/20 18:51 guaifenesin [From Mucinex] Allergy Mild Unknown Verified 12/30/20 18:51 azithromycin AdvReac Unknown Verified 12/30/20 18:51 baclofen AdvReac tired and Verified 12/30/20 18:51 fatigue Home Medications Medication Instructions Recorded Confirmed Type lancets 33 gauge (TouchMail #100 ea 03/05/19 10/01/20 Rx Lancets) albuterol sulfate 90 mcg/actuation 2 puffs INHALATION Q4H PRN 03/30/19 12/30/20 History aerosol inhaler blood sugar diagnostic (LaTherm #180 ea 04/16/19 10/01/20 Rx Verio test strips) cetirizine 10 mg tablet (Zyrtec) 10 mg PO DAILY #30 tab 11/03/19 12/30/20 Rx glipizide 10 mg tablet 10 mg PO BID #180 tab 04/16/20 12/30/20 Rx metformin 500 mg tablet,extended 1,000 mg PO BID #360 tab 04/16/20 12/30/20 Rx release 24 hr levothyroxine 25 mcg tablet 25 mcg PO QAM #90 tab 04/23/20 12/30/20 Rx fluticasone propionate 50 2 spray INTNAS DAILY #9.9 ml 07/06/20 12/30/20 Rx mcg/actuation nasal spray,suspension (Flonase Allergy Relief) lorazepam 0.5 mg tablet 0.5 mg PO DAILY PRN tab 08/17/20 12/30/20 History venlafaxine 75 mg capsule,extended 75 mg PO DAILY #90 cap 10/28/20 12/30/20 Rx release 24 hr albuterol sulfate 90 mcg/actuation 2 puffs INH Q4H PRN #8.5 g 12/26/20 12/30/20 Rx aerosol inhaler benzonatate 100 mg capsule 100 mg PO TID PRN #30 cap 12/29/20 12/30/20 Rx (Tessalkyung Vizcaino) methylprednisolone 4 mg tablets in 4 mg PO DAILY #21 ea 12/29/20 12/30/20 Rx a dose pack (Medrol (Thom)) Patient History Medical History Anxiety Anxiety disorder Cough Diabetes mellitus type 2, uncontrolled Dyslipidemia Heterozygous factor V Leiden mutation Low back pain Obesity PCOS (polycystic ovarian syndrome) Surgical History History of knee surgery Right Meniscus repaired 2009, Left Meniscus repaired 2013 History of tonsillectomy and adenoidectomy 2000 APPROX Family History Mother Depression Diabetes History of factor V Leiden mutation Ovarian cyst Grandmother (Maternal) Diabetes Grandmother (Paternal) Diabetes Father Hypertension Grandfather (Paternal) Myocardial infarction Denies family history of Ovarian cancer Prostate cancer Breast cancer Colorectal cancer Social History Smoking Status: Never smoker Second Hand Exposure: Yes; Hx Alcohol Use: Yes Alcohol type: beer Hx Substance Use: No Preferred Language: [place] Communication Ability: Effective Visual Impairment: No Limitations Hearing Ability: Normal Home Restoration Service Cleaner Required: No Beliefs That Will Affect Care: None marital status: Single Current Living Situation: Spouse current occupational status: employed current occupation: [employer] Other Information That Helps Us Care for You: No Feels Safe at Home: Yes Safety Concerns: Feels Safe At This Time Childhood Exposure to Second-Hand Smoke: Yes Dental Care, Regularly: No Physical Activity Frequency: 3-4 Times per Week Seatbelt Use: always Sunscreen Use: Yes Assistive Devices: Glasses Review of Systems Review of Systems: 12 point review of systems completed with the patient. Please refer to the admission H&P. No additions or deletions Physical Exam Constitutional: well developed, well nourished, + ill appearing and + obese Neck: trachea midline, no thyromegaly Respiratory: + respiratory distress, + labored breathing and + tachypneic Auscultation: + rales Cardiovascular: RRR, no murmur, no edema Gastrointestinal (Abdomen): normal bowel sounds, soft, nontender, no hepatosplenomegaly Musculoskeletal: Extremities: extremities normal to inspection Skin: no rashes, warm and dry Neurologic: Nonfocal exam Lymphatic: no cervical lymphadenopathy Results & Data Results & Data ([facility]) Vital Signs (Past 12 Hours) Vital Signs Temp Pulse Pulse Pulse Resp BP BP 12/31/20 08:00 36.7 C 91 H 24 114/73 12/31/20 05:54 88 24 12/31/20 03:58 36.8 C 93 H 26 H 144/84 H 12/31/20 03:25 94 H 22 12/31/20 00:36 96 H 18 12/31/20 00:00 99 H 12/30/20 23:15 36.7 C 101 H 16 150/91 H 12/30/20 22:31 99 H 20 12/30/20 22:30 36.9 C 100 H 22 142/92 H 12/30/20 21:38 100 H 20 142/69 H Pulse Ox 12/31/20 08:00 87 L 12/31/20 05:54 88 L 12/31/20 03:58 91 12/31/20 03:25 88 L 12/31/20 00:36 88 L 12/31/20 00:00 12/30/20 23:15 89 L 12/30/20 22:31 89 L 12/30/20 22:30 93 12/30/20 21:38 89 L Critical Care Results & Data Vital Signs (Past 12 Hours) Vital Signs Temp Pulse Pulse Pulse Resp BP Pulse Ox 12/31/20 08:00 36.7 C 91 H 24 114/73 87 L 12/31/20 05:54 88 24 88 L 12/31/20 03:58 36.8 C 93 H 26 H 144/84 H 91 12/31/20 03:25 94 H 22 88 L 12/31/20 00:36 96 H 18 88 L 12/31/20 00:00 99 H 12/30/20 23:15 36.7 C 101 H 16 150/91 H 89 L 12/30/20 22:31 99 H 20 89 L 12/30/20 22:30 36.9 C 100 H 22 142/92 H 93 Lab & Micro Results (Past 24 Hours) RBC 4.65 M/uL (4.2-5.4) 12/31/20 WBC 3.52 K/uL (4.8-10.8) L 12/31/20 Hgb 13.1 g/dL (12.0-16.0) 12/31/20 Hct 39.0 % (37-47) 12/31/20 MCV 83.9 fL (80-100) 12/31/20 MCH 28.2 pg (25-34) 12/31/20 MCHC 33.6 g/dL (32-36) 12/31/20 RDW Standard Deviation 39.1 fL (36.4-46.3) 12/31/20 RDW Coefficient of Variation 13.0 % (11.5-14.5) 12/31/20 Plt Count 271 K/uL (130-400) 12/31/20 MPV 9.4 fL (7.4-10.4) 12/31/20 Neutrophils (%) (Auto) 59.3 % 12/31/20 Lymphocytes (%) (Auto) 24.7 % 12/31/20 Monocytes # (Auto) 0.53 K/uL (0.11-0.59) 12/31/20 Eosinophils # (Auto) 0.00 K/uL (0-0.5) 12/31/20 Immature Granulocyte % (Auto) 0.6 % 12/31/20 Neutrophils # (Auto) 2.09 K/uL (1.4-6.5) 12/31/20 Lymphocytes # (Auto) 0.87 K/uL (1.2-3.4) L 12/31/20 Monocytes # (Auto) 0.53 K/uL (0.11-0.59) 12/31/20 Eosinophils # (Auto) 0.00 K/uL (0-0.5) 12/31/20 Basophils # (Auto) 0.01 K/uL (0-0.2) 12/31/20 Immature Granulocyte # (Auto) 0.02 K/uL (0.00-0.02) 12/31/20 Na 139 mmol/L (136-145) 12/31/20 K 3.8 mmol/L (3.5-5.1) 12/31/20 Cl 108 mmol/L (98-107) H 12/31/20 CO2 22 mmol/L (21-32) 12/31/20 Anion Gap 10.0 (3-11) 12/31/20 BUN 17 mg/dl (7-18) 12/31/20 Creatinine 0.37 mg/dl (0.6-1.2) L 12/31/20 Estimated GFR ( Amer) > 150.0 ml/min 12/31/20 Estimated GFR (Non-Af Amer) 141.4 ml/min 12/31/20 BUN/Creatinine Ratio 46.6 (10-20) H 12/31/20 Glu 220 mg/dl (70-99) H 12/31/20 Ca 8.9 mg/dl (8.5-10.1) 12/31/20 Phosphorus Level 4.1 mg/dl (2.5-4.9) 12/30/20 Total Bilirubin 0.4 mg/dl (0.2-1) 12/31/20 AST 12 U/L (15-37) L 12/31/20 ALT 27 U/L (12-78) 12/31/20 Alkaline Phosphatase 161 U/L (45-117) H 12/31/20 TP 6.7 gm/dl (6.4-8.2) 12/31/20 Albumin 2.3 gm/dl (3.4-5.0) L 12/31/20 Globulin 4.4 gm/dl (2.5-4.0) H 12/31/20 Albumin/Globulin Ratio 0.5 (0.9-2) L 12/31/20 Mg 2.3 mg/dl (1.8-2.4) 12/30/20 16:14 12/30/20 Calcium Level 8.9 mg/dl (8.5-10.1) 12/31/20 06:07 12/31/20 Diagnostic Findings (Past 24 Hours) Chest X-Ray 12/30/20 16:00 XR chest 1V portable HISTORY: Atypical Chest Pain COMPARISON: Chest 03/30/2019. FINDINGS: No pneumothorax. No pleural effusions. The heart remains mildly enlarged. There are extensive patchy perihilar airspace opacities. There are low lung volumes. IMPRESSION: Extensive bilateral airspace opacities likely representing a viral pneumonia. ACT 112: Negative or not required by law. Electronically signed by: Rufus Kumar M.D. 12/30/2020 4:57 PM Chest X-Ray 12/31/20 08:00 XR chest 1V portable HISTORY: 30 years-old Female covid pneumonia acute shortness of breath with pneumonia COMPARISON: Chest radiograph 12/30/2020 TECHNIQUE: Portable AP view of the chest FINDINGS: Cardiac silhouette is mildly enlarged, unchanged. Extensive bilateral airspace opacities redemonstrated and appear stable to mildly improved. Unchanged mild right hemidiaphragmatic elevation. No acute fracture. Unchanged cortical thickening of the distal right clavicle. IMPRESSION: Stable to mildly improved extensive bilateral airspace opacities compatible with viral pneumonia. ACT 112: Negative or not required by law. The above report was generated using voice recognition software. It may contain grammatical, syntax or spelling errors. Electronically signed by: Rc Chao M.D. 12/31/2020 7:36 AM I & O Totals 24 Hours 12/30/20 12/31/20 01/01/21 06:59 06:59 06:59 Intake Total 628.900 / 628.900 7.957 / 7.957 Balance 628.900 / 628.900 7.957 / 7.957 Cumulative 12/30/20 15:41 thru 12/31/20 07:02 Intake Total 636.857 Balance 636.857 RT Ventilator Mngmt (Last Documented) Ventilator Ordered Settings Respiratory Rate 24 12/31/20 08:00 Fraction of Inspired Oxygen 100 12/31/20 05:54 Ventilator - PT Measurements Respiratory Rate 24 PG Care Time/CCT Total # of Minutes Spent Total Time Spent with Patient: Total time spent is greater than 50% in coordination of care (as documented) at patient's floor/unit and/or counseling patient: Coding Level of Care Code 62963 Inpt Consult Level 5 Diagnoses ARDS (adult respiratory distress syndrome) J80 Acute respiratory failure with hypoxia J96.01 COVID-19 U07.1 Obesity E66.9
[2020-12-31] MEDS ORDERED: FUROSEMIDE 40 MG/4 ML VIAL IV ONE (09:30)
[2020-12-31] MEDS: INSULIN HUMAN NPH SC SCH (09:38)
[2020-12-31] MEDS: ACETAMINOPHEN 325 MG TAB PO PRN ×2 (13:40→19:29)
--- NOTE | 2020-12-31 13:43 | Pharmacy Report ---
Pharmacy Glycemic Short Note 2 - Date of Service December 31, 2020 - Glycemic Short BSG Results (Last 24 hours): 12/30/20 12/30/20 12/30/20 16:14 17:48 19:01 Glucose 377 H* POC Glucose 254 H 255 H 12/30/20 12/30/20 12/30/20 20:39 22:07 23:09 Glucose POC Glucose 254 H 266 H 236 H 12/31/20 12/31/20 12/31/20 00:08 01:10 02:14 Glucose POC Glucose 309 H* 269 H 256 H 12/31/20 12/31/20 12/31/20 04:02 05:59 06:07 Glucose 220 H POC Glucose 238 H 198 H 12/31/20 12/31/20 12/31/20 08:04 09:08 10:25 Glucose POC Glucose 186 H 171 H 188 H 12/31/20 12/31/20 12/31/20 10:59 12:01 13:02 Glucose POC Glucose 182 H 177 H 161 H OUTPATIENT ANTIDIABETIC REGIMEN: * Glipizide 10 mg BID * metformin 1 gm PO BID * HbA1C = 11.4% ASSESSMENT: * Ms Esparza is a 30 y/o F with a PMH of T2DM who presents with COVID-19. She was given dexamethasone 8 mg in the ER and started on dexamethasone 6 mg IV daily. * Patient initially started on insulin infusion which was steady at 7.7 units/hr. * Lantus 25 units given at midnight then 40 units given this morning for total basal load of 65 units (full weight-based stress of 3). * NPH 35 units given for steroid hyperglycemia. * Plan per policy to d/c insulin infusion 6 hours after lantus given which will be around 1900 tonight. * Overnight checks added to ensure 24 hour coverage. PLAN FOR INPATIENT GLYCEMIC CONTROL: * Hold outpatient oral diabetes medications * Basal insulin * Lantus 40 units SQ x 1 then TBD * Bolus insulin * NovoLog per scale ACHS or Q6hrs while NPO * Goal Range: Low 110 mg/dL - High 140 mg/dL * Correction Factor: 15 mg/dL/unit * Nutritional / Prandial insulin per carb ratio of 1 unit per 4 grams CHO consumed PLAN FOR DISCHARGE: * TBD
[2020-12-31] MEDS ORDERED: DC IV INSULIN INFUSION 1 EA DEVI ONE (19:00)
[2020-12-31] MEDS ORDERED: REMDESIVIR 100 MG in SODIUM CHLORIDE 0.9% 230 ML IV SCH (20:00)
[2020-12-31] MEDS ORDERED: INSULIN ASPART 100 UNITS/ML 3 ML PEN SC SCH (21:00)
[2020-12-31] MEDS: INSULIN REGULAR 250 UNITS in SODIUM CHLORIDE 0.9% 247.5 ML IV SCH (21:22)
[2020-12-31] MEDS: INSULIN GLARGINE SOLOSTAR 100 UNITS/ML 3 ML PEN SC SCH (21:25)
[2021-01-01] MEDS ORDERED: INSULIN ASPART 100 UNITS/ML 3 ML PEN SC SCH
[2021-01-01] MEDS ORDERED: INSULIN ASPART 100 UNITS/ML 3 ML PEN SC ONE (04:00)
[2021-01-01] MEDS ORDERED: DICLOFENAC SOD 1% GEL 100 GM TUBE EXT ONE (04:39)
[2021-01-01] MEDS: LEVOTHYROXINE SODIUM 25 MCG TABLET PO SCH (05:27)
[2021-01-01 07:12] LABS: Alanine Aminotransferase 23 U/L (12-78); Aspartate Aminotransferase 11 U/L (15-37); Creatinine Clr Calc Pharmacy 306.6 ml/min; Est GFR (African American) > 150.0 ml/min; Est GFR (Non-African American) 142.7 ml/min
--- NOTE | 2021-01-01 08:51 | Hospitalist Progress Note ---
Date of Service January 01, 2021 Assessment & Plan (1) Acute respiratory failure with hypoxia: Plan: 30 y/o covid vaccinated female w/ morbid obesity who presents w/ covid pneumonia on day 10 of symptoms. - very high oxygen requirement at time of admission, 60L and 100%, tachypnea, accessory muscle use improving over the first 24 hours which is good sign down to 55L and 75% this morning, feeling better, can take deeper breaths encourage to lay on right side, she did lay prone for a while yesterday, try that again today flutter valve, incentive spirometer mayo in place, Lasix 20mg IV daily for negative fluid balance, keep lungs dry, Cr is stable today continue treatment for COVID with dexamethasone, baricitinib 12/31: spoke with physician at [facility] to discuss ECMO, his criteria would be respiratory failure requiring intubation, high PEEP, neuromuscular blockade and A/F ratio of < 80 for 6 hours despite the above measures in terms of transferring patient to [facility] at this time, he would want her intubated for safe transportation, but would not want to intubate if we do not have to suggested we call back if the patient requires intubation and then they would consider taking her as she would be a candidate given her age, BMI is low enough (2) COVID-19: Plan: Moderna vaccine in April 2020 sick for about 10 days, worsening dyspnea the past 48 hours prior to admission CXR with diffuse bilateral infiltrates dexamethasone 6mg IV daily, day 3 baricitinib daily x 14 days. day 2 Remdesivir per protocol encourage prone position eating well Lasix daily (3) ARDS (adult respiratory distress syndrome): (4) Diabetes mellitus type 2, uncontrolled: Plan: - BSG in the 300s and serum ketones elevated. no anion gap - glycemic consult - insulin drip, sugars down below 200 transition to Lantus, NPH, Novolog SS diabetic diet (5) Sciatica: Plan: pain down both legs, chronic issue, usually she can move around, walk which relieves discomfort will try Toradol, low dose morphine if needed Lidoderm patch (6) Heterozygous factor V Leiden mutation: Plan: - no prior VTE hx - slightly elevated VTE risk at baseline; prior to starting Baracitinib, discussed w/ pulm and pharmacy Lovenox BID (7) Hypothyroidism: Plan: - continue home levothyroxine (8) Obesity: Plan: - chronic (9) PCOS (polycystic ovarian syndrome): Plan: - chronic (10) Anxiety disorder: Plan: - continue home venlafaxine Plan: FEN/GI: DM2. No maintenance IV fluids. ppx: Lovenox 40mg SQ BID (120.6kg, 40.4 BMI) code: full dispo: PCU Admission and Anticipated Discharge Date Admission Date: December 30, 2020 Subjective patient had a good night, only complaint was a headache and back pain, relieved with Tylenol and Voltaren did a good job laying on her right side, oxygen down to 55L and 75%, nice improvement vitals stable, no fever, Cr stable, sugars < 200, appreciate pharmacy assistance with sugars patient reports she can take a deep breath today, much easier to breathe minimal cough, no sputum, no chest pain, no fever/chills, no nausea discussed that she needs to continue to lay on her side, encouraged her that in first 24 hours things are getting better will check on her this afternoon called her mother to provide update Review of Systems Review of Systems: All systems reviewed & are unremarkable except as noted in Subjective Constitutional: + fatigue and + weakness; no fever Respiratory: + cough, + dyspnea and + dyspnea on exertion; no sputum production Cardiovascular: no chest pain and no edema Gastrointestinal: no abdominal pain, no nausea, no vomiting, no constipation and no diarrhea/loose stools Musculoskeletal: + back pain Physical Exam Physical Exam: General: well developed, well nourished, obese female, ill appearing Neck: supple, trachea midline, normal thyroid Lungs: crackles in bases, + tachypnea, + accessory muscle use, + cough Heart: regular S1 and S2, no murmur, peripheral pulses normal, capillary refill normal, no edema Abdomen: soft, NT, ND, + BS, no hepatomegaly, normal to percussion Extremities: normal in appearance, no cyanosis, no petechiae, strength is 5/5 bilaterally Neuro: awake, cooperative, moves all extremities, no focal motor deficits, CN II-XII intact, sensation in extremities intact, normal speech Skin: warm, dry, no rash, normal turgor Psych: Awake, alert oriented x 3, she is nervous and anxious Results & Data Results & Data ([facility]) Vital Signs (Past 12 Hours) Vital Signs Temp Pulse Pulse Pulse Resp BP Pulse Ox 01/01/21 08:07 36.7 C 67 17 118/70 95 01/01/21 05:36 66 22 96 01/01/21 04:09 36.6 C 69 18 121/73 95 01/01/21 03:11 71 22 96 12/31/20 22:50 74 23 94 12/31/20 22:40 36.6 C 72 18 144/84 H 94 12/31/20 22:19 71 Laboratory Results Laboratory Results - last 24 hr 12/31/20 12/31/20 12/31/20 09:08 10:25 10:59 Creatinine Est Cr Clr Drug Dosing Est GFR ( Amer) Est GFR (Non-Af Amer) POC Glucose 171 H 188 H 182 H AST ALT 12/31/20 12/31/20 12/31/20 12:01 13:02 14:05 Creatinine Est Cr Clr Drug Dosing Est GFR ( Amer) Est GFR (Non-Af Amer) POC Glucose 177 H 161 H 127 H AST ALT 12/31/20 12/31/20 12/31/20 15:10 16:18 17:01 Creatinine Est Cr Clr Drug Dosing Est GFR ( Amer) Est GFR (Non-Af Amer) POC Glucose 181 H 181 H 160 H AST ALT 12/31/20 12/31/20 12/31/20 18:19 19:06 20:09 Creatinine Est Cr Clr Drug Dosing Est GFR ( Amer) Est GFR (Non-Af Amer) POC Glucose 221 H 206 H 139 H AST ALT 12/31/20 12/31/20 12/31/20 20:25 21:08 22:05 Creatinine Est Cr Clr Drug Dosing Est GFR ( Amer) Est GFR (Non-Af Amer) POC Glucose 138 H 169 H 172 H AST ALT 12/31/20 01/01/21 01/01/21 23:59 02:18 04:03 Creatinine Est Cr Clr Drug Dosing Est GFR ( Amer) Est GFR (Non-Af Amer) POC Glucose 138 H 171 H 175 H AST ALT 01/01/21 01/01/21 05:51 07:35 Creatinine 0.36 L Est Cr Clr Drug Dosing 306.6 Est GFR ( Amer) > 150.0 Est GFR (Non-Af Amer) 142.7 POC Glucose 177 H AST 11 L ALT 23 Medications Administered Current Inpatient Medications Acetaminophen (Acetaminophen 325 Mg Tab) 650 mg PO Q4H PRN PRN Reason: Fever or headache Stop: 01/30/21 12:35 Last Admin: 12/31/20 19:29 Dose: 650 mg Documented by: Baricitinib (Baricitinib 2 Mg Tab) 4 mg PO DAILY ARNOL Stop: 01/13/21 20:14 Last Admin: 12/31/20 09:09 Dose: 4 mg Documented by: Dextrose (Dextrose 50% 50 Ml Syringe) 25 - 50 ml IV UD PRN; Protocol PRN Reason: Hypoglycemia Protocol Stop: 01/29/21 17:29 Enoxaparin Sodium (Enoxaparin Inj 40 Mg/0.4 Ml Syr) 40 mg SQ Q12 ARNOL Stop: 01/29/21 22:59 Last Admin: 12/31/20 20:23 Dose: 40 mg Documented by: Furosemide (Furosemide 40 Mg/4 Ml Vial) 20 mg IV DAILY ARNOL Stop: 01/31/21 08:59 Glucagon (Glucagon For Inj 1 Mg Vial) 1 mg IM UD PRN; Protocol PRN Reason: Hypoglycemia Protocol Stop: 01/29/21 17:29 Glucose (Glucose 40% Gel 15 Gm Tube) 15 - 30 gm PO UD PRN; Protocol PRN Reason: Hypoglycemia Protocol Stop: 01/29/21 17:29 Glucose (Glucose 10 Tabs/Tube) 4 - 8 tabs PO UD PRN; Protocol PRN Reason: Hypoglycemia Protocol Stop: 01/29/21 17:29 Insulin Human Regular 250 (units/ Sodium Chloride) 250 mls @ 5 mls/hr IV .Q24H ARNOL; Protocol Stop: 01/29/21 17:29 Last Titration: 01/01/21 00:21 Dose: Infused Documented by: Dexamethasone 6 mg/ Syringe 1.5 mls @ 1 mls/min IV Q24H ARNOL Stop: 01/30/21 08:59 Last Admin: 12/31/20 09:09 Dose: 1 mls/min Documented by: Insulin Aspart (Insulin Aspart 100 Units/Ml 3 Ml Pen) 0 units SC ACHS ARNOL; Protocol Stop: 01/31/21 07:29 Insulin Glargine (Insulin Glargine Solostar 100 Units/Ml 3 Ml Pen) 30 units SC BID ARNOL; Protocol Stop: 01/30/21 20:59 Last Admin: 12/31/20 21:25 Dose: 30 units Documented by: Insulin Human NPH (Insulin Human Nph) 35 units SC DAILY@0900 [facility]; Protocol Stop: 01/30/21 08:59 Last Admin: 12/31/20 09:38 Dose: 35 units Documented by: Levothyroxine Sodium (Levothyroxine Sodium 25 Mcg Tablet) 25 mcg PO DAILYBB [facility] Stop: 01/30/21 06:29 Last Admin: 01/01/21 05:27 Dose: 25 mcg Documented by: Miscellaneous (Carbohydrates For Hypoglycemia ) 15 - 30 gm PO PRN PRN PRN Reason: Hypoglycemia Treatment Stop: 01/29/21 17:29 Miscellaneous Information (Pharmacy Glycemic Mgmt Consult) 1 ea N/A UD PRN PRN Reason: Consult Stop: 01/29/21 22:29 Potassium Chloride (Potassium Chloride Crtab 20 Meq Tabcr) 20 meq PO QAM [facility] Stop: 01/31/21 08:59 Sodium Chloride (Sodium Chloride 0.9% 10ml Flush) 30 ml IV Q24H [facility] Stop: 01/03/21 20:01 Last Admin: 12/31/20 20:17 Dose: Not Given Documented by: Venlafaxine HCl (Venlafaxine Hcl Xr 75 Mg Capxr) 75 mg PO DAILY [facility] Stop: 01/30/21 08:59 Last Admin: 12/31/20 09:10 Dose: 75 mg Documented by: PG Care Time/CCT Total # of Minutes Spent Total Time Spent with Patient: Total time spent is greater than 50% in coordination of care (as documented) at patient's floor/unit and/or counseling patient: Coding Level of Care Code 97391 Subseq Hosp Care Lvl 3 Diagnoses Acute respiratory failure with hypoxia J96.01 COVID-19 U07.1 Diabetes mellitus type 2, uncontrolled E11.65 Heterozygous factor V Leiden mutation D68.51 Hypothyroidism E03.9 Obesity E66.9 PCOS (polycystic ovarian syndrome) E28.2 Anxiety disorder F41.9 Sciatica M54.30 ARDS (adult respiratory distress syndrome) J80
[2021-01-01] MEDS ORDERED: FUROSEMIDE 20 MG in SYRINGE 0 ML IV SCH (09:00)
--- NOTE | 2021-01-01 09:14 | Pharmacy Report ---
Pharmacy Glycemic Short Note 2 - Date of Service January 01, 2021 - Glycemic Short BSG Results (Last 24 hours): 12/31/20 12/31/20 12/31/20 10:25 10:59 12:01 POC Glucose 188 H 182 H 177 H 12/31/20 12/31/20 12/31/20 13:02 14:05 15:10 POC Glucose 161 H 127 H 181 H 12/31/20 12/31/20 12/31/20 16:18 17:01 18:19 POC Glucose 181 H 160 H 221 H 12/31/20 12/31/20 12/31/20 19:06 20:09 20:25 POC Glucose 206 H 139 H 138 H 12/31/20 12/31/20 12/31/20 21:08 22:05 23:59 POC Glucose 169 H 172 H 138 H 01/01/21 01/01/21 01/01/21 02:18 04:03 07:35 POC Glucose 171 H 175 H 177 H OUTPATIENT ANTIDIABETIC REGIMEN: * Glipizide 10 mg BID * metformin 1 gm PO BID * HbA1C = 11.4% ASSESSMENT: 01/01/21 * Patient's BSGs yesterday were controlled below 300 mg/dL while on insulin infusion. Insulin infusion ran from 6.2 unit/hr to 10.4 units/hr until midnight then patient transitioned off. * Fasting today was 177 mg/dL. BSGs overnight were 138-175 mg/dL. * In addition to insulin infusion patient received 105 units of basal insulin (70 units of Lantus and 35 units of NPH). * Continue Lantus 30 units BID (weight-based stress of 3) * Continue NPH 35 units daily (0.4 unit/kg of adjusted body weight) * Continue current Novolog orders- weight-based stress of 3. May require tightening. Background * Ms Esparza is a 30 y/o F with a PMH of T2DM who presents with COVID-19. She was given dexamethasone 8 mg in the ER and started on dexamethasone 6 mg IV daily. * Patient initially started on insulin infusion which was steady at 7.7 units/hr. * Lantus 25 units given at midnight then 40 units given this morning for total basal load of 65 units (full weight-based stress of 3). * NPH 35 units given for steroid hyperglycemia. * Plan per policy to d/c insulin infusion 6 hours after lantus given which will be around 1900 tonight. * Overnight checks added to ensure 24 hour coverage. PLAN FOR INPATIENT GLYCEMIC CONTROL: * Hold outpatient oral diabetes medications * Basal insulin * Lantus 30 units SQ BID * NPH 35 units daily * Bolus insulin * NovoLog per scale ACHS or Q6hrs while NPO * Goal Range: Low 110 mg/dL - High 140 mg/dL * Correction Factor: 15 mg/dL/unit * Nutritional / Prandial insulin per carb ratio of 1 unit per 4 grams CHO consumed PLAN FOR DISCHARGE: * TBD
[2021-01-01] MEDS ORDERED: traMADol HCL 50 MG TABLET PO PRN (09:15)
[2021-01-01] MEDS ORDERED: KETOROLAC TROMETHAMINE 15 MG/ML VIAL IV PRN (09:15)
[2021-01-01] MEDS: dexAMETHasone 6 MG in SYRINGE 0 ML IV SCH (09:16)
[2021-01-01] MEDS: BARICITINIB 2 MG TAB PO SCH (09:16)
[2021-01-01] MEDS: FUROSEMIDE 40 MG/4 ML VIAL IV SCH (09:17)
[2021-01-01] MEDS: ENOXAPARIN INJ 40 MG/0.4 ML SYR SQ SCH ×2 (09:17→20:03)
[2021-01-01] MEDS: INSULIN ASPART 100 UNITS/ML 3 ML PEN SC SCH ×4 (09:41→20:13)
[2021-01-01] MEDS: INSULIN HUMAN NPH SC SCH (09:42)
[2021-01-01] MEDS: INSULIN GLARGINE SOLOSTAR 100 UNITS/ML 3 ML PEN SC SCH ×2 (09:42→20:13)
[2021-01-01] MEDS: VENLAFAXINE HCL XR 75 MG CAPXR PO SCH (10:33)
[2021-01-01] MEDS: LIDOCAINE 5% 1 PATCH TD SCH (10:33)
--- NOTE | 2021-01-01 12:03 | Pulmonology Progress Note ---
Date of Service January 01, 2021 Assessment & Plan (1) ARDS (adult respiratory distress syndrome): (2) Acute respiratory failure with hypoxia: (3) COVID-19: (4) Obesity: Plan: Impression: 30-year-old female with obesity. She is been vaccinated but unfortunately has a breakthrough case of Covid pneumonitis. She has been initiated on dexamethasone and baricitinib. She continues to have significant oxygen requirement. Recommendations: 1. Covid pneumonitis: Continue dexamethasone and baricitinib. 2. Hypoxemic respiratory failure: Continue positional therapy and weaning oxygen as tolerated. Should she fail, could try reapplication of noninvasive positive pressure ventilation. 3. Recommend continuing monitoring for secondary infection. No indication for antibiotics currently. 4. DVT prophylaxis per [employer] guidelines. Patient appears improved clinically from yesterday. Pulmonary will sign off. Please call should the patient deteriorate or require additional interventions. Admission and Anticipated Discharge Date Admission Date: December 30, 2020 Subjective Seen and examined. Discussed with hospitalist. The patient is doing better. She has had reduction in her oxygen requirement. She is tolerating decubitus positioning well without difficulty. She is not having any chest pain. No palpitations. She overall feels that her breathing is somewhat better. Review of Systems Review of Systems: All systems reviewed & are unremarkable except as noted in HPI & below Physical Exam Constitutional: well developed, well nourished, + ill appearing and + obese Neck: trachea midline, no thyromegaly Respiratory: + respiratory distress, + labored breathing and + tachypneic Auscultation: + rales Cardiovascular: RRR, no murmur, no edema Gastrointestinal (Abdomen): normal bowel sounds, soft, nontender, no hepatosplenomegaly Musculoskeletal: Extremities: extremities normal to inspection Skin: no rashes, warm and dry Lymphatic: no cervical lymphadenopathy Results & Data Results & Data ([facility]) Vital Signs (Past 12 Hours) Vital Signs Temp Pulse Pulse Resp BP Pulse Ox 01/01/21 11:51 81 18 94 01/01/21 08:07 36.7 C 67 17 118/70 95 01/01/21 05:36 66 22 96 01/01/21 04:09 36.6 C 69 18 121/73 95 01/01/21 03:11 71 22 96 Critical Care Results & Data Vital Signs (Past 12 Hours) Vital Signs Temp Pulse Pulse Resp BP Pulse Ox 01/01/21 11:51 81 18 94 01/01/21 08:07 36.7 C 67 17 118/70 95 01/01/21 05:36 66 22 96 01/01/21 04:09 36.6 C 69 18 121/73 95 01/01/21 03:11 71 22 96 Lab & Micro Results (Past 24 Hours) No Data to Display Creatinine 0.36 mg/dl (0.6-1.2) L 01/01/21 Estimated GFR ( Amer) > 150.0 ml/min 01/01/21 Estimated GFR (Non-Af Amer) 142.7 ml/min 01/01/21 AST 11 U/L (15-37) L 01/01/21 ALT 23 U/L (12-78) 01/01/21 No Data to Display Microbiology 12/30/20 18:17 Aerobic Blood Culture - Preliminary Blood No growth in Aerobic bottle after 24 hours. Anaerobic Blood Culture - Preliminary No growth in Anaerobic bottle after 24 hours. 12/30/20 17:49 Aerobic Blood Culture - Preliminary Blood No growth in Aerobic bottle after 24 hours. Anaerobic Blood Culture - Preliminary No growth in Anaerobic bottle after 24 hours. I & O Totals 24 Hours 12/31/20 01/01/21 01/02/21 06:59 06:59 06:59 Intake Total 628.900 / 628.900 611.838 / 611.838 Output Total 1650 / 1650 Balance 628.900 / 628.900 -1038.162 / -1038.162 Cumulative 12/30/20 15:41 thru 01/01/21 04:14 Intake Total 1240.738 Output Total 1650 Balance -409.262 RT Ventilator Mngmt (Last Documented) Ventilator Ordered Settings Respiratory Rate 18 01/01/21 11:51 Fraction of Inspired Oxygen 75 01/01/21 11:51 Ventilator - PT Measurements Respiratory Rate 18 PG Care Time/CCT Total # of Minutes Spent Total Time Spent with Patient: Total time spent is greater than 50% in coordination of care (as documented) at patient's floor/unit and/or counseling patient: Coding Level of Care Code 10506 Subseq Hosp Care Lvl 2 Diagnoses ARDS (adult respiratory distress syndrome) J80 Acute respiratory failure with hypoxia J96.01 COVID-19 U07.1 Obesity E66.9
[2021-01-01] MEDS ORDERED: INSULIN HUMAN REGULAR PER UNIT 10 UNITS in SYRINGE 9.9 ML IV ONE (12:30)
[2021-01-01] MEDS: POTASSIUM CHLORIDE CRTAB 20 MEQ TABCR PO SCH (13:01)
[2021-01-01] MEDS: SODIUM CHLORIDE 0.9% 10ML FLUSH IV SCH (19:17)
[2021-01-02] MEDS: LEVOTHYROXINE SODIUM 25 MCG TABLET PO SCH (06:11)
[2021-01-02 07:51] LABS: Alanine Aminotransferase 36 U/L (12-78); Aspartate Aminotransferase 23 U/L (15-37); BUN Creatinine Ratio 62.8 (10-20); Blood Urea Nitrogen 23 mg/dl (7-18); C Reactive Protein 1.65 mg/dl (0-0.29); Carbon Dioxide 26 mmol/L (21-32); Chloride 108 mmol/L (98-107); Est GFR (African American) > 150.0 ml/min; Est GFR (Non-African American) 142.7 ml/min; Glucose 77 mg/dl (70-99); Potassium 3.6 mmol/L (3.5-5.1); Sodium 140 mmol/L (136-145)
[2021-01-02] MEDS ORDERED: INSULIN HUMAN NPH SC SCH (09:00)
[2021-01-02] MEDS: dexAMETHasone 6 MG in SYRINGE 0 ML IV SCH (09:35)
[2021-01-02] MEDS: INSULIN ASPART 100 UNITS/ML 3 ML PEN SC SCH ×5 (09:35→23:05)
[2021-01-02] MEDS: ENOXAPARIN INJ 40 MG/0.4 ML SYR SQ SCH ×2 (09:37→20:16)
[2021-01-02] MEDS: INSULIN GLARGINE SOLOSTAR 100 UNITS/ML 3 ML PEN SC SCH ×2 (09:38→23:05)
[2021-01-02] MEDS: VENLAFAXINE HCL XR 75 MG CAPXR PO SCH (09:39)
--- NOTE | 2021-01-02 09:40 | Hospitalist Progress Note ---
Date of Service January 02, 2021 Assessment & Plan (1) Acute respiratory failure with hypoxia: Plan: 30 y/o covid vaccinated female w/ morbid obesity who presents w/ covid pneumonia on day 10 of symptoms. - very high oxygen requirement at time of admission, 60L and 100%, tachypnea, accessory muscle use improving over the first 48 hours which is good sign down to 50L and 60% this morning, feeling better, can take deeper breaths encourage to lay on right side, she will lay prone but does not last long, back pain flutter valve, incentive spirometer mayo in place, Lasix 20mg IV daily for negative fluid balance, keep lungs dry, Cr is stable at 0.36, BUN up to 23, K is 3.6 continue treatment for COVID with dexamethasone, baricitinib 12/31: spoke with physician at [place] to discuss ECMO, his criteria would be respiratory failure requiring intubation, high PEEP, neuromuscular blockade and A/F ratio of < 80 for 6 hours despite the above measures in terms of transferring patient to [place] at this time, he would want her int ubated for safe transportation, but would not want to intubate if we do not have to suggested we call back if the patient requires intubation and then they would consider taking her as she would be a candidate given her age, BMI is low enough at this point she is improving so very doubtful she would need intubated and transferred discussed realistic expectations with patient, will likely be here all this week to slowly improve and recover (2) COVID-19: Plan: Moderna vaccine in April 2020 sick for about 10 days, worsening dyspnea the past 48 hours prior to admission CXR with diffuse bilateral infiltrates dexamethasone 6mg IV daily, day 4 baricitinib daily x 14 days. day 3 Remdesivir per protocol, day 4 encourage prone position eating well Lasix daily CRP down to 1.6 from 13, huge improvement and clinically she is much better (3) ARDS (adult respiratory distress syndrome): Plan: bilateral infiltrates, FiO2 of 100% required initially continue dexamethasone, laying on side or prone, Lasix to keep lungs dry making steady improvements, prognosis getting better each day (4) Diabetes mellitus type 2, uncontrolled: Plan: - BSG in the 300s and serum ketones elevated. no anion gap - glycemic consult - insulin drip, sugars down below 200 transition to Lantus, NPH, Novolog SS diabetic diet sugars labile, will need diabetic teaching and plan for discharge (5) Sciatica: Plan: pain down both legs, chronic issue, usually she can move around, walk which relieves discomfort will try Toradol, Ultram Lidoderm patch pain better today, she gets relief if she lays on her back (6) Heterozygous factor V Leiden mutation: Plan: - no prior VTE hx - slightly elevated VTE risk at baseline; prior to starting Baracitinib, discussed w/ pulm and pharmacy Lovenox BID would consider Xarelto 10mg 30 days on discharge (7) Hypothyroidism: Plan: - continue home levothyroxine (8) Obesity: Plan: - chronic (9) PCOS (polycystic ovarian syndrome): Plan: - chronic (10) Anxiety disorder: Plan: - continue home venlafaxine Plan: FEN/GI: DM2. No maintenance IV fluids. ppx: Lovenox 40mg SQ BID (120.6kg, 40.4 BMI) code: full dispo: PCU Admission and Anticipated Discharge Date Admission Date: December 30, 2020 Subjective reviewed labs, Cr stable, K normal, CRP is down to 1 from 13, big improvement oxygen requirements coming down as well, 50L and 60%, will try to wean further no events overnight, she got up to try to use bathroom, no BM, she desaturated to 82% but recovered nicely no chest pain, minimal dyspnea, + cough she was on speaker phone with her mother while I was in the room, so I gave mother update discussed that new attending will take over tomorrow Review of Systems Review of Systems: All systems reviewed & are unremarkable except as noted in Subjective Respiratory: + cough, + dyspnea and + dyspnea on exertion Gastrointestinal: + constipation Physical Exam Physical Exam: General: well developed, well nourished, obese female, ill appearing Neck: supple, trachea midline, normal thyroid Lungs: crackles in bases, + tachypnea, + accessory muscle use, + cough, no distress laying on right side Heart: regular S1 and S2, no murmur, peripheral pulses normal, capillary refill normal, no edema Abdomen: soft, NT, ND, + BS, no hepatomegaly, normal to percussion Extremities: normal in appearance, no cyanosis, no petechiae, strength is 5/5 bilaterally Neuro: awake, cooperative, moves all extremities, no focal motor deficits, CN II-XII intact, sensation in extremities intact, normal speech Skin: warm, dry, no rash, normal turgor Psych: Awake, alert oriented x 3, calm and euthymic Results & Data Results & Data ([facility]) Vital Signs (Past 12 Hours) Vital Signs Temp Pulse Resp BP Pulse Ox 01/02/21 06:29 66 18 93 01/02/21 04:58 36.7 C 65 18 127/80 95 01/02/21 04:18 67 18 93 01/01/21 23:17 36.6 C 68 18 119/76 94 01/01/21 22:57 73 18 91 Laboratory Results Laboratory Results - last 24 hr 01/01/21 01/01/21 01/01/21 11:36 11:37 14:25 Sodium Potassium Chloride Carbon Dioxide Anion Gap BUN Creatinine Est Cr Clr Drug Dosing Est GFR ( Amer) Est GFR (Non-Af Amer) BUN/Creatinine Ratio Glucose POC Glucose 333 H* 304 H* 305 H* Calcium AST ALT C-Reactive Protein 01/01/21 01/01/21 01/02/21 16:07 20:01 07:10 Sodium 140 Potassium 3.6 Chloride 108 H Carbon Dioxide 26 Anion Gap 6.0 BUN 23 H Creatinine 0.36 L Est Cr Clr Drug Dosing 309.0 Est GFR ( Amer) > 150.0 Est GFR (Non-Af Amer) 142.7 BUN/Creatinine Ratio 62.8 H Glucose 77 POC Glucose 276 H 259 H Calcium 9.0 AST 23 ALT 36 C-Reactive Protein 1.65 H 01/02/21 09:29 Sodium Potassium Chloride Carbon Dioxide Anion Gap BUN Creatinine Est Cr Clr Drug Dosing Est GFR ( Amer) Est GFR (Non-Af Amer) BUN/Creatinine Ratio Glucose POC Glucose 79 Calcium AST ALT C-Reactive Protein Medications Administered Current Inpatient Medications Acetaminophen (Acetaminophen 325 Mg Tab) 650 mg PO Q4H PRN PRN Reason: Fever or headache Stop: 01/30/21 12:35 Last Admin: 12/31/20 19:29 Dose: 650 mg Documented by: Baricitinib (Baricitinib 2 Mg Tab) 4 mg PO DAILY ARNOL Stop: 01/13/21 20:14 Last Admin: 01/01/21 09:16 Dose: 4 mg Documented by: Dextrose (Dextrose 50% 50 Ml Syringe) 25 - 50 ml IV UD PRN; Protocol PRN Reason: Hypoglycemia Protocol Stop: 01/29/21 17:29 Enoxaparin Sodium (Enoxaparin Inj 40 Mg/0.4 Ml Syr) 40 mg SQ Q12 ARNOL Stop: 01/29/21 22:59 Last Admin: 01/01/21 20:03 Dose: 40 mg Documented by: Furosemide (Furosemide 40 Mg/4 Ml Vial) 20 mg IV DAILY ARNOL Stop: 01/31/21 08:59 Last Admin: 01/01/21 09:17 Dose: 20 mg Documented by: Glucagon (Glucagon For Inj 1 Mg Vial) 1 mg IM UD PRN; Protocol PRN Reason: Hypoglycemia Protocol Stop: 01/29/21 17:29 Glucose (Glucose 40% Gel 15 Gm Tube) 15 - 30 gm PO UD PRN; Protocol PRN Reason: Hypoglycemia Protocol Stop: 01/29/21 17:29 Glucose (Glucose 10 Tabs/Tube) 4 - 8 tabs PO UD PRN; Protocol PRN Reason: Hypoglycemia Protocol Stop: 01/29/21 17:29 Insulin Human Regular 250 (units/ Sodium Chloride) 250 mls @ 5 mls/hr IV .Q24H ARNOL; Protocol Stop: 01/29/21 17:29 Last Titration: 01/01/21 00:21 Dose: Infused Documented by: Dexamethasone 6 mg/ Syringe 1.5 mls @ 1 mls/min IV Q24H ARNOL Stop: 01/30/21 08:59 Last Admin: 01/01/21 09:16 Dose: 1 mls/min Documented by: Insulin Aspart (Insulin Aspart 100 Units/Ml 3 Ml Pen) 0 units SC ACHS [facility]; Protocol Stop: 01/31/21 07:29 Last Admin: 01/01/21 20:13 Dose: 10 units Documented by: Insulin Glargine (Insulin Glargine Solostar 100 Units/Ml 3 Ml Pen) 20 units SC BID [facility]; Protocol Stop: 02/01/21 08:59 Insulin Human NPH (Insulin Human Nph) 45 units SC DAILY@0900 [facility]; Protocol Stop: 02/01/21 08:59 Ketorolac Tromethamine (Ketorolac Tromethamine 15 Mg/Ml Vial) 15 mg IV Q8H PRN PRN Reason: Pain Stop: 01/06/21 09:14 Levothyroxine Sodium (Levothyroxine Sodium 25 Mcg Tablet) 25 mcg PO DAILYBB [facility] Stop: 01/30/21 06:29 Last Admin: 01/02/21 06:11 Dose: 25 mcg Documented by: Lidocaine (Lidocaine 5% 1 Patch) 1 patch TD QAM [facility] Stop: 01/31/21 09:14 Last Admin: 01/01/21 10:33 Dose: 1 patch Documented by: Miscellaneous (Carbohydrates For Hypoglycemia ) 15 - 30 gm PO PRN PRN PRN Reason: Hypoglycemia Treatment Stop: 01/29/21 17:29 Miscellaneous (Remove Lidoderm Patch) 1 ea N/A DAILY@2100 [facility] Stop: 01/31/21 20:59 Last Admin: 01/01/21 20:07 Dose: 1 ea Documented by: Miscellaneous Information (Pharmacy Glycemic Mgmt Consult) 1 ea N/A UD PRN PRN Reason: Consult Stop: 01/29/21 22:29 Potassium Chloride (Potassium Chloride Crtab 20 Meq Tabcr) 20 meq PO QAM [facility] Stop: 01/31/21 08:59 Last Admin: 01/01/21 13:01 Dose: 20 meq Documented by: Sodium Chloride (Sodium Chloride 0.9% 10ml Flush) 30 ml IV Q24H [facility] Stop: 01/03/21 20:01 Last Admin: 01/01/21 19:17 Dose: Not Given Documented by: Tramadol HCl (Tramadol Hcl 50 Mg Tablet) 50 mg PO Q6H PRN PRN Reason: Pain Stop: 01/31/21 09:14 Venlafaxine HCl (Venlafaxine Hcl Xr 75 Mg Capxr) 75 mg PO DAILY [facility] Stop: 01/30/21 08:59 Last Admin: 01/01/21 10:33 Dose: 75 mg Documented by: PG Care Time/CCT Total # of Minutes Spent Total Time Spent with Patient: Total time spent is greater than 50% in coord ination of care (as documented) at patient's floor/unit and/or counseling patient: Coding Level of Care Code 86601 Subseq Hosp Care Lvl 3 Diagnoses Acute respiratory failure with hypoxia J96.01 COVID-19 U07.1 ARDS (adult respiratory distress syndrome) J80 Diabetes mellitus type 2, uncontrolled E11.65 Sciatica M54.30 Heterozygous factor V Leiden mutation D68.51 Hypothyroidism E03.9 Obesity E66.9 PCOS (polycystic ovarian syndrome) E28.2 Anxiety disorder F41.9
[2021-01-02] MEDS: FUROSEMIDE 40 MG/4 ML VIAL IV SCH (09:47)
[2021-01-02] MEDS: POTASSIUM CHLORIDE CRTAB 20 MEQ TABCR PO SCH (09:47)
[2021-01-02] MEDS: BARICITINIB 2 MG TAB PO SCH (09:47)
[2021-01-02] MEDS: LIDOCAINE 5% 1 PATCH TD SCH (09:59)
--- NOTE | 2021-01-02 11:47 | Pharmacy Report ---
Pharmacy Glycemic Short Note 2 - Date of Service January 02, 2021 - Glycemic Short BSG Results (Last 24 hours): 01/01/21 01/01/21 01/01/21 14:25 16:07 20:01 Glucose POC Glucose 305 H* 276 H 259 H 01/02/21 01/02/21 07:10 09:29 Glucose 77 POC Glucose 79 OUTPATIENT ANTIDIABETIC REGIMEN: * Glipizide 10 mg BID * metformin 1 gm PO BID * HbA1C = 11.4% ASSESSMENT: 01/02/21 * Patient's BSGs yesterday were [phone] mg/dL. * Patient received 174 units of insulin (95 units of basal of which 45 units is NPH and 60 units is Lantus and 79 units of bolus). * Fasting BSG today was 79 mg/dL. * Patient's fasting BSG has decreased by about 100 points. This may be due to excessive basal insulin as well as aggressive correction at bedtime. Will decrease basal by 30% to 20 units BID (Weight-based stress of 2). Loosen HS CF to 25 from 12. * Increase NPH as BSGs trended upwards throughout the day. * Continue aggressive Novolog due to hyperglycemia with steroids. 01/01/21 * Patient's BSGs yesterday were controlled below 300 mg/dL while on insulin infusion. Insulin infusion ran from 6.2 unit/hr to 10.4 units/hr until midnight then patient transitioned off. * Fasting today was 177 mg/dL. BSGs overnight were 138-175 mg/dL. * In addition to insulin infusion patient received 105 units of basal insulin (70 units of Lantus and 35 units of NPH). * Continue Lantus 30 units BID (weight-based stress of 3) * Continue NPH 35 units daily (0.4 unit/kg of adjusted body weight) * Continue current Novolog orders- weight-based stress of 3. May require tightening. Background * Ms Esparza is a 30 y/o F with a PMH of T2DM who presents with COVID-19. She was given dexamethasone 8 mg in the ER and started on dexamethasone 6 mg IV daily. * Patient initially started on insulin infusion which was steady at 7.7 units/hr. * Lantus 25 units given at midnight then 40 units given this morning for total basal load of 65 units (full weight-based stress of 3). * NPH 35 units given for steroid hyperglycemia. * Plan per policy to d/c insulin infusion 6 hours after lantus given which will be around 1900 tonight. * Overnight checks added to ensure 24 hour coverage. PLAN FOR INPATIENT GLYCEMIC CONTROL: * Hold outpatient oral diabetes medications * Basal insulin * Lantus 20 units SQ BID * NPH 45 units daily * Bolus insulin * NovoLog per scale ACHS or Q6hrs while NPO * Goal Range: Low 110 mg/dL - High 140 mg/dL * Correction Factor: 12 mg/dL/unit (25 mg/dL/unit at HS) * Nutritional / Prandial insulin per carb ratio of 1 unit per 3 grams CHO consumed PLAN FOR DISCHARGE: * TBD
[2021-01-02] MEDS: SODIUM CHLORIDE 0.9% 10ML FLUSH IV SCH (20:08)
[2021-01-03 07:48] LABS: Alanine Aminotransferase 51 U/L (12-78); Aspartate Aminotransferase 17 U/L (15-37); Creatinine Clr Calc Pharmacy 243.5 ml/min; Est GFR (African American) > 150.0 ml/min; Est GFR (Non-African American) 131.6 ml/min
[2021-01-03] MEDS: LEVOTHYROXINE SODIUM 25 MCG TABLET PO SCH (08:00)
--- NOTE | 2021-01-03 08:02 | Hospitalist Progress Note ---
Date of Service January 03, 2021 Assessment & Plan (1) Acute respiratory failure with hypoxia: Plan: 30 y/o covid vaccinated female w/ morbid obesity who presents w/ covid pneumonia symptoms started approximately 12/23 - very high oxygen requirement at time of admission, 60L and 100%, tachypnea, accessory muscle use mayo in place, Lasix 20mg IV daily for negative fluid balance, keep lungs dry, Cr is stable too fatigued to walk to bathroom continue treatment for COVID with dexamethasone, baricitinib on 12/31 there was a call to discuss Ecmo, however the pt seems to have turned the corner toward improvement discussed realistic expectations with patient, will likely be here all this week to slowly improve and recover (2) COVID-19: Plan: Moderna vaccine in April 2020 sick for about 10 days , worsening dyspnea the past 48 hours prior to admission CXR with diffuse bilateral infiltrates dexamethasone 6mg IV daily, started 12/30 baricitinib daily x 14 days. started 12/30 Remdesivir per protocol,completed encourage prone position eating well Lasix daily CRP down to 1.6 from 13, huge improvement and clinically she is much better (3) ARDS (adult respiratory distress syndrome): Plan: bilateral infiltrates, FiO2 of 100% required initially continue dexamethasone, laying on side or prone, Lasix to keep lungs dry making steady improvements, prognosis getting better each day (4) Diabetes mellitus type 2, uncontrolled: Plan: - BSG in the 300s and serum ketones elevated. no anion gap - glycemic consult - insulin drip, transition to Lantus, NPH, Novolog SS diabetic diet sugars labile, will need diabetic teaching and plan for discharge (5) Sciatica: Plan: pain down both legs, chronic issue, usually she can move around, walk which rel ieves discomfort will try Toradol, Ultram Lidoderm patch pain better she gets relief if she lays on her back (6) Heterozygous factor V Leiden mutation: Plan: - no prior VTE hx - slightly elevated VTE risk at baseline; prior to starting Baracitinib, discussed w/ pulm and pharmacy Lovenox BID would consider Xarelto 10mg 30 days on discharge (7) Hypothyroidism: Plan: - continue home levothyroxine (8) Obesity: Plan: - chronic (9) PCOS (polycystic ovarian syndrome): Plan: - chronic (10) Anxiety disorder: Plan: - continue home venlafaxine Plan: FEN/GI: DM2. No maintenance IV fluids. ppx: Lovenox 40mg SQ BID (120.6kg, 40.4 BMI) code: full dispo: PCU Admission and Anticipated Discharge Date Admission Date: December 30, 2020 Subjective pt is doing much better less oxygen and getting better energy, was fatigued when moving about the room, and desaturated but quickly rebounded, otherwise no new issues Review of Systems Review of Systems: Mild distress and fatigue no headache, no visual changes no speech or swallowing issues no chest pain, pressure or palpitations improving shortness of breath, non productive cough persists some bloating abdominal pain, no nausea or vomiting, no diarrhea no dysuria, hematuria or frequency no focal joint pain or swelling no back pain, CVA tenderness or radicular pain no bruising, bleeding or rashes no focal signs of weakness or numbness or altered sensation no complaints of anxiety or depression.. Physical Exam Physical Exam: The patient appeared well nourished and normally developed. Vital signs as documented. Head exam is normocephalic atraumatic Neck is without JVD, thyromegaly, or carotid bruits. Lungs are with some coarseness, but overall appears improving Cardiac exam, Rhythm is regular.. No murmurs, rubs or gallops. Abdominal exam reveals normal bowel sounds, soft non tender, no masses Extremities are nonedematous and both pedal pulses are present Neurologic exam is alert and oriented, no focal loss of strength or sensation Skin is without bruises or rashes Psychologically is without concerns for anxiety or depression Results & Data Results & Data ([facility]) Vital Signs (Past 12 Hours) Vital Signs Temp Pulse Resp BP Pulse Ox 01/03/21 04:38 98.1 F 61 18 106/72 94 01/02/21 23:23 98.6 F 72 17 133/75 92 PG Care Time/CCT Total # of Minutes Spent Total Time Spent with Patient: Total time spent is greater than 50% in coordination of care (as documented) at patient's floor/unit and/or counseling patient: Coding Level of Care Code 95205 Subseq Obs Care Lvl 2 Diagnoses Acute respiratory failure with hypoxia J96.01 COVID-19 U07.1 ARDS (adult respiratory distress syndrome) J80 Diabetes mellitus type 2, uncontrolled E11.65 Sciatica M54.30 Heterozygous factor V Leiden mutation D68.51 Hypothyroidism E03.9 Obesity E66.9 PCOS (polycystic ovarian syndrome) E28.2 Anxiety disorder F41.9
[2021-01-03] MEDS: ENOXAPARIN INJ 40 MG/0.4 ML SYR SQ SCH ×2 (08:39→20:28)
[2021-01-03] MEDS: dexAMETHasone 6 MG in SYRINGE 0 ML IV SCH (08:39)
[2021-01-03] MEDS: INSULIN GLARGINE SOLOSTAR 100 UNITS/ML 3 ML PEN SC SCH ×2 (08:40→22:22)
[2021-01-03] MEDS: INSULIN ASPART 100 UNITS/ML 3 ML PEN SC SCH ×4 (08:40→22:22)
[2021-01-03] MEDS: VENLAFAXINE HCL XR 75 MG CAPXR PO SCH (08:42)
[2021-01-03] MEDS: LIDOCAINE 5% 1 PATCH TD SCH (08:43)
[2021-01-03] MEDS: INSULIN HUMAN NPH SC SCH (08:43)
[2021-01-03] MEDS: POTASSIUM CHLORIDE CRTAB 20 MEQ TABCR PO SCH (09:21)
[2021-01-03] MEDS: BARICITINIB 2 MG TAB PO SCH (09:21)
[2021-01-03] MEDS: FUROSEMIDE 40 MG/4 ML VIAL IV SCH (09:21)
--- NOTE | 2021-01-03 12:37 | Pharmacy Report ---
Pharmacy Glycemic Short Note 2 - Date of Service January 03, 2021 - Glycemic Short BSG Results (Last 24 hours): 01/02/21 01/02/21 01/03/21 18:33 19:57 07:38 POC Glucose 236 H 262 H 134 H 01/03/21 11:54 POC Glucose 158 H OUTPATIENT ANTIDIABETIC REGIMEN: * Glipizide 10 mg BID * metformin 1 gm PO BID * HbA1C = 11.4% ASSESSMENT: 01/03/21 * Patient's BSGs yesterday were [phone] mg/dL. * Patient received 143 units of insulin (85 units of basal of which 45 units is NPH and 40 units is Lantus and 58 units of bolus). * Fasting BSG today was 134 mg/dL. * Patient's fasting BSG is within goal continue current regimen. * Increase NPH as BSGs trended upwards throughout the day. * Tighten Novolog slightly due to hyperglycemia with steroids. 01/02/21 * Patient's BSGs yesterday were [phone] mg/dL. * Patient received 174 units of insulin (95 units of basal of which 45 units is NPH and 60 units is Lantus and 79 units of bolus). * Fasting BSG today was 79 mg/dL. * Patient's fasting BSG has decreased by about 100 points. This may be due to excessive basal insulin as well as aggressive correction at bedtime. Will decrease basal by 30% to 20 units BID (Weight-based stress of 2). Loosen HS CF to 25 from 12. * Increase NPH as BSGs trended upwards throughout the day. * Continue aggressive Novolog due to hyperglycemia with steroids. 01/01/21 * Patient's BSGs yesterday were controlled below 300 mg/dL while on insulin infusion. Insulin infusion ran from 6.2 unit/hr to 10.4 units/hr until midnight then patient transitioned off. * Fasting today was 177 mg/dL. BSGs overnight were 138-175 mg/dL. * In addition to insulin infusion patient received 105 units of basal insulin (70 units of Lantus and 35 units of NPH). * Continue Lantus 30 units BID (weight-based stress of 3) * Continue NPH 35 units daily (0.4 unit/kg of adjusted body weight) * Continue current Novolog orders- weight-based stress of 3. May require tightening. Background * Ms Esparza is a 30 y/o F with a PMH of T2DM who presents with COVID-19. She was given dexamethasone 8 mg in the ER and started on dexamethasone 6 mg IV daily. * Patient initially started on insulin infusion which was steady at 7.7 units/hr. * Lantus 25 units given at midnight then 40 units given this morning for total basal load of 65 units (full weight-based stress of 3). * NPH 35 units given for steroid hyperglycemia. * Plan per policy to d/c insulin infusion 6 hours after lantus given which will be around 1900 tonight. * Overnight checks added to ensure 24 hour coverage. PLAN FOR INPATIENT GLYCEMIC CONTROL: * Hold outpatient oral diabetes medications * Basal insulin * Lantus 20 units SQ BID * NPH 55 units daily * Bolus insulin * NovoLog per scale ACHS or Q6hrs while NPO * Goal Range: Low 110 mg/dL - High 140 mg/dL * Correction Factor: 12 mg/dL/unit (25 mg/dL/unit at HS) * Nutritional / Prandial insulin per carb ratio of 1 unit per 2.5 grams CHO consumed PLAN FOR DISCHARGE: * TBD
[2021-01-04] MEDS: LEVOTHYROXINE SODIUM 25 MCG TABLET PO SCH (06:00)
[2021-01-04 07:02] LABS: Alanine Aminotransferase 70 U/L (12-78); Aspartate Aminotransferase 23 U/L (15-37); Creatinine Clr Calc Pharmacy 235.8 ml/min; Est GFR (African American) > 150.0 ml/min; Est GFR (Non-African American) 130.7 ml/min
[2021-01-04] MEDS: INSULIN ASPART 100 UNITS/ML 3 ML PEN SC SCH ×4 (08:43→19:52)
[2021-01-04] MEDS: dexAMETHasone 6 MG in SYRINGE 0 ML IV SCH (09:10)
[2021-01-04] MEDS: BARICITINIB 2 MG TAB PO SCH (09:10)
[2021-01-04] MEDS: ENOXAPARIN INJ 40 MG/0.4 ML SYR SQ SCH ×2 (09:11→19:51)
[2021-01-04] MEDS: FUROSEMIDE 40 MG/4 ML VIAL IV SCH (09:11)
[2021-01-04] MEDS: LIDOCAINE 5% 1 PATCH TD SCH (09:13)
[2021-01-04] MEDS: INSULIN GLARGINE SOLOSTAR 100 UNITS/ML 3 ML PEN SC SCH ×2 (09:13→19:51)
[2021-01-04] MEDS: VENLAFAXINE HCL XR 75 MG CAPXR PO SCH (09:13)
[2021-01-04] MEDS: INSULIN HUMAN NPH SC SCH (09:13)
[2021-01-04] MEDS: POTASSIUM CHLORIDE CRTAB 20 MEQ TABCR PO SCH (09:15)
--- NOTE | 2021-01-04 14:15 | Pharmacy Report ---
Pharmacy Glycemic Short Note 2 - Date of Service January 04, 2021 - Glycemic Short BSG Results (Last 24 hours): 01/03/21 01/03/21 01/04/21 17:03 21:35 07:37 POC Glucose 238 H 195 H 79 01/04/21 11:41 POC Glucose 159 H OUTPATIENT ANTIDIABETIC REGIMEN: * Glipizide 10 mg BID * metformin 1 gm PO BID * HbA1C = 11.4% ASSESSMENT: 01/04 * Pt has received 165 units of insulin over the past 24hrs * 40 units of basal with Lantus * 55 units of NPH for steroid induced hyperglycemia * 70 units of bolus with NovoLog * BSGs [phone] mg/dl * AM fasting BSG slightly below goal range this morning at 79mg/dl. Will decrease basal insulin with Lantus * Pre-dinner BSG remains elevated - will tighten CR for lunch * NPH is dosed at 0.45 units/kg- no changes needed to NPH for steroid induced hyperglycemia with dex. 01/03/21 * Patient's BSGs yesterday were [phone] mg/dL. * Patient received 143 units of insulin (85 units of basal of which 45 units is NPH and 40 units is Lantus and 58 units of bolus). * Fasting BSG today was 134 mg/dL. * Patient's fasting BSG is within goal continue current regimen. * Increase NPH as BSGs trended upwards throughout the day. * Tighten Novolog slightly due to hyperglycemia with steroids. 01/02/21 * Patient's BSGs yesterday were [phone] mg/dL. * Patient received 174 units of insulin (95 units of basal of which 45 units is NPH and 60 units is Lantus and 79 units of bolus). * Fasting BSG today was 79 mg/dL. * Patient's fasting BSG has decreased by about 100 points. This may be due to excessive basal insulin as well as aggressive correction at bedtime. Will decrease basal by 30% to 20 units BID (Weight-based stress of 2). Loosen HS CF to 25 from 12. * Increase NPH as BSGs trended upwards throughout the day. * Continue aggressive Novolog due to hyperglycemia with steroids. 01/01/21 * Patient's BSGs yesterday were controlled below 300 mg/dL while on insulin infusion. Insulin infusion ran from 6.2 unit/hr to 10.4 units/hr until midnight then patient transitioned off. * Fasting today was 177 mg/dL. BSGs overnight were 138-175 mg/dL. * In addition to insulin infusion patient received 105 units of basal insulin (70 units of Lantus and 35 units of NPH). * Continue Lantus 30 units BID (weight-based stress of 3) * Continue NPH 35 units daily (0.4 unit/kg of adjusted body weight) * Continue current Novolog orders- weight-based stress of 3. May require tightening. Background * Ms Esparza is a 30 y/o F with a PMH of T2DM who presents with COVID-19. She was given dexamethasone 8 mg in the ER and started on dexamethasone 6 mg IV daily. * Patient initially started on insulin infusion which was steady at 7.7 units/hr. * Lantus 25 units given at midnight then 40 units given this morning for total basal load of 65 units (full weight-based stress of 3). * NPH 35 units given for steroid hyperglycemia. * Plan per policy to d/c insulin infusion 6 hours after lantus given which will be around 1900 tonight. * Overnight checks added to ensure 24 hour coverage. PLAN FOR INPATIENT GLYCEMIC CONTROL: * Hold outpatient oral diabetes medications * Basal insulin * Lantus 18 units SQ BID * NPH 55 units daily * Bolus insulin * NovoLog per scale ACHS or Q6hrs while NPO * Goal Range: Low 110 mg/dL - High 140 mg/dL * Correction Factor: 12 mg/dL/unit (25 mg/dL/unit at HS) * Nutritional / Prandial insulin per carb ratio of 1 unit per 2.5 grams CHO consumed PLAN FOR DISCHARGE: * A1c = 11.4% * A1c is greater than or equal to 10% --> consider triple therapy with metformin + basal insulin + (GLP1-RA OR prandial insulin). May need to continue additional antidiabetic agent based on patient specific factors (efficacy, hypo risk, weight gain/loss, side effects, cost) * Support Patient Self-Management * Healthy Lifestyle (diet, exercise, and smoking cessation) * Disease self-management (SMBG) * Prevention of complications (BP, Lipid goals, Immunizations) * Consider outpatient Diabetes Self-Management Education & Support * Most patients on multiple-dose insulin (MDI) should SMBG * Prior to meals and snacks * At bedtime * Prior to exercise * When they suspect low blood glucose * After treating low blood glucose until they are normoglycemic * Prior to critical tasks such as driving * Occasionally postprandially
--- NOTE | 2021-01-04 18:30 | Hospitalist Progress Note ---
Date of Service January 04, 2021 Assessment & Plan (1) Acute respiratory failure with hypoxia: Plan: 30 y/o covid vaccinated female w/ morbid obesity who presents w/ covid pneumonia symptoms started approximately 12/23 - very high oxygen requirement at time of admission, 60L and 100%, tachypnea, accessory muscle use mayo in place, Lasix 20mg IV daily for negative fluid balance, keep lungs dry, Cr is stable too fatigued to walk to bathroom continue treatment for COVID with dexamethasone, baricitinib on 12/31 there was a call to discuss Ecmo, however the pt seems to have turned the corner toward improvement discussed realistic expectations with patient, will likely be here all this week to slowly improve and recover (2) COVID-19: Plan: Moderna vaccine in April 2020 sick for about 10 days , worsening dyspnea the past 48 hours prior to admission CXR with diffuse bilateral infiltrates dexamethasone 6mg IV daily, started 12/30 baricitinib daily x 14 days. started 12/30 Remdesivir per protocol,completed encourage prone position eating well Lasix daily CRP down to 1.6 from 13, huge improvement and clinically she is much better (3) ARDS (adult respiratory distress syndrome): Plan: bilateral infiltrates, FiO2 of 100% required initially continue dexamethasone, laying on side or prone, Lasix to keep lungs dry making steady improvements, prognosis getting better each day (4) Diabetes mellitus type 2, uncontrolled: Plan: - BSG in the 300s and serum ketones elevated. no anion gap - glycemic consult - insulin drip, transition to Lantus, NPH, Novolog SS diabetic diet sugars labile, will need diabetic teaching and plan for discharge (5) Sciatica: Plan: pain down both legs, chronic issue, usually she can move around, walk which rel ieves discomfort will try Toradol, Ultram Lidoderm patch pain better she gets relief if she lays on her back (6) Heterozygous factor V Leiden mutation: Plan: - no prior VTE hx - slightly elevated VTE risk at baseline; prior to starting Baracitinib, discussed w/ pulm and pharmacy Lovenox BID would consider Xarelto 10mg 30 days on discharge (7) Hypothyroidism: Plan: - continue home levothyroxine (8) Obesity: Plan: - chronic (9) PCOS (polycystic ovarian syndrome): Plan: - chronic (10) Anxiety disorder: Plan: - continue home venlafaxine Plan: FEN/GI: DM2. No maintenance IV fluids. ppx: Lovenox 40mg SQ BID (120.6kg, 40.4 BMI) code: full dispo: PCU Admission and Anticipated Discharge Date Admission Date: December 30, 2020 Subjective pt is doing much better less oxygen and getting better energy, was fatigued when moving about the room, and desaturated but quickly rebounded, otherwise no new issues Review of Systems Review of Systems: Mild distress and fatigue no headache, no visual changes no speech or swallowing issues no chest pain, pressure or palpitations improving shortness of breath, non productive cough persists some bloating abdominal pain, no nausea or vomiting, no diarrhea no dysuria, hematuria or frequency no focal joint pain or swelling no back pain, CVA tenderness or radicular pain no bruising, bleeding or rashes no focal signs of weakness or numbness or altered sensation no complaints of anxiety or depression.. Physical Exam Physical Exam: The patient appeared well nourished and normally developed. Vital signs as documented. Head exam is normocephalic atraumatic Neck is without JVD, thyromegaly, or carotid bruits. Lungs are with some coarseness, but overall appears improving Cardiac exam, Rhythm is regular.. No murmurs, rubs or gallops. Abdominal exam reveals normal bowel sounds, soft non tender, no masses Extremities are nonedematous and both pedal pulses are present Neurologic exam is alert and oriented, no focal loss of strength or sensation Skin is without bruises or rashes Psychologically is without concerns for anxiety or depression Results & Data Results & Data ([facility]) Vital Signs (Past 12 Hours) Vital Signs Temp Pulse Resp BP Pulse Ox 01/04/21 16:29 98.2 F 67 19 113/71 97 01/04/21 11:49 98.1 F 72 19 105/62 90 01/04/21 07:41 97.9 F 54 L 23 124/80 99 PG Care Time/CCT Total # of Minutes Spent Total Time Spent with Patient: Total time spent is greater than 50% in coordination of care (as documented) at patient's floor/unit and/or counseling patient: Coding Level of Care Code 27762 Subseq Hosp Care Lvl 2 Diagnoses Acute respiratory failure with hypoxia J96.01 COVID-19 U07.1 ARDS (adult respiratory distress syndrome) J80 Diabetes mellitus type 2, uncontrolled E11.65 Sciatica M54.30 Heterozygous factor V Leiden mutation D68.51 Hypothyroidism E03.9 Obesity E66.9 PCOS (polycystic ovarian syndrome) E28.2 Anxiety disorder F41.9
[2021-01-05] MEDS: LEVOTHYROXINE SODIUM 25 MCG TABLET PO SCH (09:00)
[2021-01-05] MEDS: dexAMETHasone 6 MG in SYRINGE 0 ML IV SCH (09:00)
[2021-01-05] MEDS: INSULIN GLARGINE SOLOSTAR 100 UNITS/ML 3 ML PEN SC SCH ×2 (09:01→21:30)
[2021-01-05] MEDS: ENOXAPARIN INJ 40 MG/0.4 ML SYR SQ SCH ×2 (09:01→21:24)
[2021-01-05] MEDS: INSULIN ASPART 100 UNITS/ML 3 ML PEN SC SCH ×4 (09:02→21:30)
[2021-01-05] MEDS: LIDOCAINE 5% 1 PATCH TD SCH (09:02)
[2021-01-05] MEDS: INSULIN HUMAN NPH SC SCH (09:02)
[2021-01-05] MEDS: VENLAFAXINE HCL XR 75 MG CAPXR PO SCH (09:02)
[2021-01-05] MEDS: POTASSIUM CHLORIDE CRTAB 20 MEQ TABCR PO SCH (09:08)
[2021-01-05] MEDS: FUROSEMIDE 40 MG/4 ML VIAL IV SCH (09:08)
[2021-01-05] MEDS: BARICITINIB 2 MG TAB PO SCH (09:08)
--- NOTE | 2021-01-05 17:18 | Hospitalist Progress Note ---
Date of Service January 05, 2021 Assessment & Plan (1) Acute respiratory failure with hypoxia: Plan: 30 y/o covid vaccinated female w/ morbid obesity who presents w/ covid pneumonia symptoms started approximately 12/23 - very high oxygen requirement at time of admission, 60L and 100%, tachypnea, accessory muscle use mayo in place, continues on Lasix 20mg IV daily for negative fluid balance, keep lungs dry, Cr is stable still shakey walking to bathroom continue treatment for COVID with dexamethasone, baricitinib on 12/31 there was a call to discuss Ecmo, however the pt seems to have turned the corner toward improvement discussed realistic expectations with patient, will likely be here all this week to slowly improve and recover (2) COVID-19: Plan: Moderna vaccine in April 2020 sick for about 10 days , worsening dyspnea the past 48 hours prior to admission CXR with diffuse bilateral infiltrates dexamethasone 6mg IV daily, started 12/30 baricitinib daily x 14 days. started 12/30 Remdesivir per protocol,completed encourage prone position eating well Lasix daily CRP down to 1.6 from 13, huge improvement and clinically she is much better (3) ARDS (adult respiratory distress syndrome): Plan: bilateral infiltrates, FiO2 of 100% required initially continue dexamethasone, laying on side or prone, Lasix to keep lungs dry pt will be improving to home in next few days (4) Diabetes mellitus type 2, uncontrolled: Plan: - BSG in the 300s and serum ketones elevated. no anion gap - glycemic consult - insulin drip, transition to Lantus, NPH, Novolog SS diabetic diet sugars labile, patient seen by diabetic nurse educator who recommends the time of discharge to supply a verio test strips to check her glucose 3 times a day [employer] lancets Lantus Solostar pen for 1 time a day Lantus administration with 32-gauge times needlesdose of Lantus will be based upon how she does in the hospital here (5) Sciatica: Plan: pain down both legs, chronic issue, usually she can move around, walk which relieves discomfort will try Toradol, Ultram Lidoderm patch pain better she gets relief if she lays on her back (6) Heterozygous factor V Leiden mutation: Plan: - no prior VTE hx - slightly elevated VTE risk at baseline; prior to starting Baracitinib, discussed w/ pulm and pharmacy Lovenox BID would consider Xarelto 10mg 30 days on discharge (7) Hypothyroidism: Plan: - continue home levothyroxine (8) Obesity: Plan: - chronic (9) PCOS (polycystic ovarian syndrome): Plan: - chronic (10) Anxiety disorder: Plan: - continue home venlafaxine Plan: FEN/GI: DM2. No maintenance IV fluids. ppx: Lovenox 40mg SQ BID (120.6kg, 40.4 BMI) code: full dispo: downgrade to medical covid Admission and Anticipated Discharge Date Admission Date: December 30, 2020 Subjective pt is doing much better however unable to titrate oxygen, but feeling that she has better energy, however still very shakey getting oob and with adl's still does not want mayo out just yet Review of Systems Review of Systems: Mild distress and fatigue no headache, no visual changes no speech or swallowing issues no chest pain, pressure or palpitations improving shortness of breath, non productive cough persists some bloating abdominal pain, no nausea or vomiting, no diarrhea no dysuria, hematuria or frequency no focal joint pain or swelling no back pain, CVA tenderness or radicular pain no bruising, bleeding or rashes no focal signs of weakness or numbness or altered sensation no complaints of anxiety or depression.. Physical Exam Physical Exam: The patient appeared well nourished and normally developed. Vital signs as documented. Head exam is normocephalic atraumatic Neck is without JVD, thyromegaly, or carotid bruits. Lungs are with some coarseness, but overall appears improving Cardiac exam, Rhythm is regular.. No murmurs, rubs or gallops. Abdominal exam reveals normal bowel sounds, soft non tender, no masses Extremities are nonedematous and both pedal pulses are present Neurologic exam is alert and oriented, no focal loss of strength or sensation Skin is without bruises or rashes Psychologically is without concerns for anxiety or depression Results & Data Results & Data ([facility]) Vital Signs (Past 12 Hours) Vital Signs Temp Pulse Resp BP BP Pulse Ox 01/05/21 15:40 98.1 F 75 18 108/65 96 01/05/21 11:00 98.2 F 70 19 100/65 96 01/05/21 07:36 97.7 F 60 18 109/73 94 PG Care Time/CCT Total # of Minutes Spent Total Time Spent with Patient: Total time spent is greater than 50% in coordination of care (as documented) at patient's floor/unit and/or counseling patient: Coding Level of Care Code 79368 Subseq Hosp Care Lvl 2 Diagnoses Acute respiratory failure with hypoxia J96.01 COVID-19 U07.1 ARDS (adult respiratory distress syndrome) J80 Diabetes mellitus type 2, uncontrolled E11.65 Sciatica M54.30 Heterozygous factor V Leiden mutation D68.51 Hypothyroidism E03.9 Obesity E66.9 PCOS (polycystic ovarian syndrome) E28.2 Anxiety disorder F41.9
[2021-01-06] MEDS: LEVOTHYROXINE SODIUM 25 MCG TABLET PO SCH (06:00)
[2021-01-06] MEDS: ENOXAPARIN INJ 40 MG/0.4 ML SYR SQ SCH ×2 (08:09→20:18)
[2021-01-06] MEDS: VENLAFAXINE HCL XR 75 MG CAPXR PO SCH (08:10)
[2021-01-06] MEDS: LIDOCAINE 5% 1 PATCH TD SCH (08:11)
[2021-01-06] MEDS: INSULIN ASPART 100 UNITS/ML 3 ML PEN SC SCH ×4 (09:33→20:23)
[2021-01-06] MEDS: INSULIN HUMAN NPH SC SCH (09:34)
[2021-01-06] MEDS: INSULIN GLARGINE SOLOSTAR 100 UNITS/ML 3 ML PEN SC SCH ×2 (09:34→20:24)
[2021-01-06] MEDS: dexAMETHasone 6 MG in SYRINGE 0 ML IV SCH (09:56)
[2021-01-06] MEDS: FUROSEMIDE 40 MG/4 ML VIAL IV SCH (09:56)
[2021-01-06] MEDS: POTASSIUM CHLORIDE CRTAB 20 MEQ TABCR PO SCH (09:58)
[2021-01-06] MEDS: BARICITINIB 2 MG TAB PO SCH (09:58)
--- NOTE | 2021-01-06 20:19 | Hospitalist Progress Note ---
Date of Service January 06, 2021 Assessment & Plan (1) Acute respiratory failure with hypoxia: Plan: 30 y/o covid vaccinated female w/ morbid obesity who presents w/ covid pneumonia symptoms started approximately 12/23 - very high oxygen requirement at time of admission, 60L and 100%, tachypnea, accessory muscle use mayo in place, continues on Lasix 20mg IV daily for negative fluid balance, keep lungs dry, Cr is stable still shakey walking around her room waiting a PT OT evaluation continue treatment for COVID with dexamethasone, baricitinib on 12/31 there was a call to discuss Ecmo, however the pt seems to have turned the corner toward improvement discussed realistic expectations with patient, will likely be here all this week to slowly improve and recover (2) COVID-19: Plan: Moderna vaccine in April 2020 Prior to this admission she was sick for about 10 days , worsening dyspnea the past 48 hours prior to admission CXR with diffuse bilateral infiltrates dexamethasone 6mg IV daily, started 12/30 baricitinib daily x 14 days. started 12/30 Remdesivir per protocol,completed encourage prone position eating well Lasix daily CRP down to 1.6 from 13, huge improvement and clinically she is much better (3) ARDS (adult respiratory distress syndrome): Plan: bilateral infiltrates, FiO2 of 100% required initially continue dexamethasone, laying on side or prone, Lasix to keep lungs dry (4) Diabetes mellitus type 2, uncontrolled: Plan: - BSG in the 300s and serum ketones elevated. no anion gap - glycemic consult Lantus, NPH, Novolog SS (initially did require insulin drip) diabetic diet sugars labile, patient seen by diabetic nurse educator who recommends the time of discharge to supply a verio test strips to check her glucose 3 times a day [employer] lancets Lantus Solostar pen for 1 time a day Lantus administration with 32-gauge times needlesdose of Lantus will be based upon how she does in the hospital here (5) Sciatica: Plan: pain down both legs, chronic issue, usually she can move around, walk which relieves discomfort will try Toradol, Ultram Lidoderm patch Pain is resolved (6) Heterozygous factor V Leiden mutation: Plan: - no prior VTE hx - slightly elevated VTE risk at baseline; prior to starting Baracitinib, discussed w/ pulm and pharmacy Lovenox BID would consider Xarelto 10mg 30 days on discharge (7) Hypothyroidism: Plan: - continue home levothyroxine (8) Obesity: Plan: - chronic (9) PCOS (polycystic ovarian syndrome): Plan: - chronic (10) Anxiety disorder: Plan: - continue home venlafaxine Plan: FEN/GI: DM2. No maintenance IV fluids. ppx: Lovenox 40mg SQ BID (120.6kg, 40.4 BMI) code: full dispo: downgrade to medical covid Admission and Anticipated Discharge Date Admission Date: December 30, 2020 Subjective pt is doing much better extremely weak and deconditioned oxygen is hanging 2 to 3 L but improving daily. We will get physical and occupational therapy to evaluate this patient for rehabilitation Review of Systems Review of Systems: Mild distress and fatigue no headache, no visual changes no speech or swallowing issues no chest pain, pressure or palpitations improving shortness of breath, non productive cough persists some bloating abdominal pain, no nausea or vomiting, no diarrhea no dysuria, hematuria or frequency no focal joint pain or swelling no back pain, CVA tenderness or radicular pain no bruising, bleeding or rashes no focal signs of weakness or numbness or altered sensation no complaints of anxiety or depression.. Physical Exam Physical Exam: The patient appeared well nourished and normally developed. Vital signs as documented. Head exam is normocephalic atraumatic Neck is without JVD, thyromegaly, or carotid bruits. Lungs are with some coarseness, but overall appears improving Cardiac exam, Rhythm is regular.. No murmurs, rubs or gallops. Abdominal exam reveals normal bowel sounds, soft non tender, no masses Extremities are nonedematous and both pedal pulses are present Neurologic exam is alert and oriented, no focal loss of strength or sensation Skin is without bruises or rashes Psychologically is without concerns for anxiety or depression Results & Data Results & Data ([facility]) Vital Signs (Past 12 Hours) Vital Signs Temp Pulse Resp BP Pulse Ox 01/06/21 14:22 98.2 F 82 18 103/68 92 01/06/21 09:55 104/69 PG Care Time/CCT Total # of Minutes Spent Total Time Spent with Patient: Total time spent is greater than 50% in coordination of care (as documented) at patient's floor/unit and/or counseling patient: Coding Level of Care Code 07698 Subseq Hosp Care Lvl 2 Diagnoses Acute respiratory failure with hypoxia J96.01 COVID-19 U07.1 ARDS (adult respiratory distress syndrome) J80 Diabetes mellitus type 2, uncontrolled E11.65 Sciatica M54.30 Heterozygous factor V Leiden mutation D68.51 Hypothyroidism E03.9 Obesity E66.9 PCOS (polycystic ovarian syndrome) E28.2 Anxiety disorder F41.9
[2021-01-07] MEDS: LEVOTHYROXINE SODIUM 25 MCG TABLET PO SCH (06:34)
[2021-01-07] MEDS: LIDOCAINE 5% 1 PATCH TD SCH (08:03)
[2021-01-07] MEDS: ENOXAPARIN INJ 40 MG/0.4 ML SYR SQ SCH ×2 (08:03→21:05)
[2021-01-07] MEDS: VENLAFAXINE HCL XR 75 MG CAPXR PO SCH (08:03)
[2021-01-07] MEDS ORDERED: INSULIN HUMAN NPH SC SCH (09:00)
[2021-01-07] MEDS: BARICITINIB 2 MG TAB PO SCH (09:11)
[2021-01-07] MEDS: dexAMETHasone 6 MG in SYRINGE 0 ML IV SCH (09:12)
[2021-01-07] MEDS: POTASSIUM CHLORIDE CRTAB 20 MEQ TABCR PO SCH (09:12)
[2021-01-07] MEDS: FUROSEMIDE 40 MG/4 ML VIAL IV SCH (09:13)
[2021-01-07] MEDS: INSULIN GLARGINE SOLOSTAR 100 UNITS/ML 3 ML PEN SC SCH ×2 (09:14→21:05)
[2021-01-07] MEDS: INSULIN ASPART 100 UNITS/ML 3 ML PEN SC SCH ×4 (09:34→21:05)
[2021-01-07 09:35] LABS: Hematocrit (blood only) 41.1 % (37-47); Mean Corpuscular Hemoglobin 28.5 pg (25-34); Mean Corpuscular Hgb Conc 34.1 g/dL (32-36); Mean Corpuscular Volume 83.5 fL (80-100); Mean Platelet Volume 10.1 fL (7.4-10.4); Platelet Count 407 K/uL (130-400); RDW Coefficient of Variation 12.4 % (11.5-14.5); RDW Standard Deviation 37.5 fL (36.4-46.3); Red Blood Count 4.92 M/uL (4.2-5.4); White Blood Count 9.81 K/uL (4.8-10.8)
[2021-01-07 09:53] LABS: BUN Creatinine Ratio 43.8 (10-20); Blood Urea Nitrogen 18 mg/dl (7-18); Calcium 9.5 mg/dl (8.5-10.1); Carbon Dioxide 29 mmol/L (21-32); Chloride 103 mmol/L (98-107); Creatinine Clr Calc Pharmacy 277.9 ml/min; Est GFR (African American) > 150.0 ml/min; Est GFR (Non-African American) 137.8 ml/min; Glucose 85 mg/dl (70-99); Sodium 138 mmol/L (136-145)
--- NOTE | 2021-01-07 10:03 | Pharmacy Report ---
Pharmacy Glycemic Short Note 2 - Date of Service January 07, 2021 - Glycemic Short BSG Results (Last 24 hours): 01/06/21 01/06/21 01/06/21 12:15 17:18 20:21 Glucose POC Glucose 147 H 271 H 234 H 01/07/21 01/07/21 07:59 08:13 Glucose 85 POC Glucose 89 OUTPATIENT ANTIDIABETIC REGIMEN: * Glipizide 10 mg BID * metformin 1 gm PO BID * HbA1C = 11.4% ASSESSMENT: 01/07/21 * Ms Esparza received 178 units of insulin yesterday. * 36 units of basal insulin with Lantus * 55 units of NPH insulin for steroid coverage * 87 units of bolus insulin with Novolog * Ongoing BSG trend has been fasting BSG at or slightly below goal range, with hyperglycemia in the evening. * Novolog parameters were adjusted yesterday morning to provide additional carb coverage. * NPH increased slightly this morning to assist with better glycemic control through the afternoon/evening. PLAN FOR INPATIENT GLYCEMIC CONTROL: * Hold outpatient oral diabetes medications * Basal insulin * Lantus 18 units SQ BID * NPH 60 units SQ daily * Bolus insulin * NovoLog per scale ACHS or Q6hrs while NPO * Goal Range: Low 110 mg/dL - High 140 mg/dL * Correction Factor: 15 mg/dL/unit (25 mg/dL/unit at HS) * Nutritional / Prandial insulin per carb ratio of 1 unit per 1.5 grams CHO consumed PLAN FOR DISCHARGE: * A1c = 11.4% * A1c is greater than or equal to 10% --> consider triple therapy with metformin + basal insulin + (GLP1-RA OR prandial insulin). May need to continue additional antidiabetic agent based on patient specific factors (efficacy, hypo risk, weight gain/loss, side effects, cost) * Support Patient Self-Management * Healthy Lifestyle (diet, exercise, and smoking cessation) * Disease self-management (SMBG) * Prevention of complications (BP, Lipid goals, Immunizations) * Consider outpatient Diabetes Self-Management Education & Support * Most patients on multiple-dose insulin (MDI) should SMBG * Prior to meals and snacks * At bedtime * Prior to exercise * When they suspect low blood glucose * After treating low blood glucose until they are normoglycemic * Prior to critical tasks such as driving * Occasionally postprandially
[2021-01-07 10:04] LABS: Phosphorus 3.7 mg/dl (2.5-4.9)
--- NOTE | 2021-01-07 17:27 | Hospitalist Progress Note ---
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 started 12/30 Remdesivir per protocol,completed eating well CRP down to 1.6 from 13, huge improvement and clinically she is much better (3) ARDS (adult respiratory distress syndrome): Plan: bilateral infiltrates, FiO2 of 100% required initially now resolving (4) Diabetes mellitus type 2, uncontrolled: Plan: - BSG in the 300s and serum ketones elevated. no anion gap - glycemic consult Lantus, NPH, Novolog SS (initially did require insulin drip) diabetic diet sugars labile, patient seen by diabetic nurse educator who recommends the time of discharge to supply a verio test strips to check her glucose 3 times a day Delica lancets Lantus Solostar pen for 1 time a day Lantus administration with 32-gauge times needlesdose of Lantus will be based upon how she does in the hospital here (5) Sciatica: Plan: impoved with will try Toradol, Ultram Lidoderm patch Pain is resolved (6) Heterozygous factor V Leiden mutation: Plan: - no prior VTE hx - slightly elevated VTE risk at baseline; prior to starting Baracitinib, discussed w/ pulm and pharmacy Lovenox BID would consider Xarelto 10mg 30 days on discharge (7) Hypothyroidism: Plan: - continue home levothyroxine (8) Obesity: Plan: - chronic (9) PCOS (polycystic ovarian syndrome): Plan: - chronic (10) Anxiety disorder: Plan: - continue home venlafaxine Plan: FEN/GI: DM2. No maintenance IV fluids. ppx: Lovenox 40mg SQ BID (120.6kg, 40.4 BMI) code: full dispo: downgrade to medical covid Admission and Anticipated Discharge Date Admission Date: December 30, 2020 Subjective pt is having improving oxygen requirements but is very weak, still not at day 10 of steroids and morning labs check out ok, will continue supportive care Review of Systems Review of Systems: Mild distress and moderate fatigue no headache, no visual changes no speech or swallowing issues no chest pain, pressure or palpitations improving shortness of breath, non productive cough persists improved abdominal pain, no nausea or vomiting, no diarrhea no dysuria, hematuria or frequency no focal joint pain or swelling no back pain, CVA tenderness or radicular pain no bruising, bleeding or rashes no focal signs of weakness or numbness or altered sensation no complaints of anxiety or depression.. Physical Exam Physical Exam: The patient appeared well nourished and normally developed. Vital signs as documented. Head exam is normocephalic atraumatic Neck is without JVD, thyromegaly, or carotid bruits. Lungs are clear no focal loss Cardiac exam, Rhythm is regular.. No murmurs, rubs or gallops. Abdominal exam reveals normal bowel sounds, soft non tender, no masses Extremities are nonedematous and both pedal pulses are present Neurologic exam is alert and oriented, no focal loss of strength or sensation Skin is without bruises or rashes Psychologically is without concerns for anxiety or depression Results & Data Results & Data ([facility]) Vital Signs (Past 12 Hours) Vital Signs Temp Pulse Resp BP Pulse Ox Pulse Ox Pulse Ox 01/07/21 15:45 97.9 F 87 16 98/61 L 94 01/07/21 15:03 98 98 01/07/21 12:06 91 01/07/21 06:48 97.9 F 59 L 16 99/67 L 94 Pulse Ox 01/07/21 15:45 01/07/21 15:03 91 01/07/21 12:06 01/07/21 06:48 PG Care Time/CCT Total # of Minutes Spent Total Time Spent with Patient: Total time spent is greater than 50% in coordination of care (as documented) at patient's floor/unit and/or counseling patient: Coding Level of Care Code 26075 Subseq Hosp Care Lvl 2 Diagnoses Acute respiratory failure with hypoxia J96.01 COVID-19 U07.1 ARDS (adult respiratory distress syndrome) J80 Diabetes mellitus type 2, uncontrolled E11.65 Sciatica M54.30 Heterozygous factor V Leiden mutation D68.51 Hypothyroidism E03.9 Obesity E66.9 PCOS (polycystic ovarian syndrome) E28.2 Anxiety disorder F41.9
[2021-01-08] MEDS: LEVOTHYROXINE SODIUM 25 MCG TABLET PO SCH (06:00)
[2021-01-08] MEDS ORDERED: INSULIN HUMAN NPH SC SCH (09:00)
[2021-01-08] MEDS: VENLAFAXINE HCL XR 75 MG CAPXR PO SCH (09:05)
[2021-01-08] MEDS: ENOXAPARIN INJ 40 MG/0.4 ML SYR SQ SCH ×2 (09:06→21:13)
[2021-01-08] MEDS: LIDOCAINE 5% 1 PATCH TD SCH (09:08)
[2021-01-08] MEDS: INSULIN ASPART 100 UNITS/ML 3 ML PEN SC SCH ×4 (09:14→21:13)
[2021-01-08] MEDS: INSULIN GLARGINE SOLOSTAR 100 UNITS/ML 3 ML PEN SC SCH (09:16)
[2021-01-08] MEDS: BARICITINIB 2 MG TAB PO SCH (09:23)
[2021-01-08] MEDS: POTASSIUM CHLORIDE CRTAB 20 MEQ TABCR PO SCH (09:24)
[2021-01-08] MEDS: dexAMETHasone 6 MG in SYRINGE 0 ML IV SCH (09:24)
--- NOTE | 2021-01-08 10:07 | Pharmacy Report ---
Pharmacy Glycemic Short Note 2 - Date of Service January 08, 2021 - Glycemic Short BSG Results (Last 24 hours): 01/07/21 01/07/21 01/07/21 12:34 17:17 20:36 POC Glucose 218 H 280 H 199 H 01/08/21 01/08/21 08:27 08:31 POC Glucose 63 L* 71 OUTPATIENT ANTIDIABETIC REGIMEN: * Glipizide 10 mg BID * metformin 1 gm PO BID * HbA1C = 11.4% ASSESSMENT: 01/08: * Patient received total 250 units of insulin yesterday: 36 units of Lantus + 60 units (total 96 units basal) and 154 units bolus. * Fasting BSG was low this AM at 65 mg/dl. Lantus HS dose reduced. * Since dinner BSG continue to be elevated, NPH dose increased slightly again this AM. Novolog CR tightened further AC but loosened at HS. 01/07/21 * Ms Esparza received 178 units of insulin yesterday. * 36 units of basal insulin with Lantus * 55 units of NPH insulin for steroid coverage * 87 units of bolus insulin with Novolog * Ongoing BSG trend has been fasting BSG at or slightly below goal range, with hyperglycemia in the evening. * Novolog parameters were adjusted yesterday morning to provide additional carb coverage. * NPH increased slightly this morning to assist with better glycemic control through the afternoon/evening. PLAN FOR INPATIENT GLYCEMIC CONTROL: * Hold outpatient oral diabetes medications * Basal insulin * Lantus 18 units SQ QAM * Lantus 10 units SQ HS * NPH 65 units SQ QAM with IV Dexamethasone * Bolus insulin * NovoLog per scale ACHS or Q6hrs while NPO * Goal Range: Low 110 mg/dL - High 140 mg/dL * Correction Factor: 15 mg/dL/unit (30 mg/dL/unit at HS) * Nutritional / Prandial insulin per carb ratio of 1 unit per 1.2 grams CHO consumed AC and 1 unit per 4 gms CHO at HS PLAN FOR DISCHARGE: * A1c = 11.4% * A1c is greater than or equal to 10% --> consider triple therapy with metformin + basal insulin + (GLP1-RA OR prandial insulin). May need to continue additional antidiabetic agent based on patient specific factors (efficacy, hypo risk, weight gain/loss, side effects, cost) * Support Patient Self-Management * Healthy Lifestyle (diet, exercise, and smoking cessation) * Disease self-management (SMBG) * Prevention of complications (BP, Lipid goals, Immunizations) * Consider outpatient Diabetes Self-Management Education & Support * Most patients on multiple-dose insulin (MDI) should SMBG * Prior to meals and snacks * At bedtime * Prior to exercise * When they suspect low blood glucose * After treating low blood glucose until they are normoglycemic * Prior to critical tasks such as driving * Occasionally postprandially
--- NOTE | 2021-01-08 14:09 | Hospitalist Progress Note ---
Date of Service January 08, 2021 Assessment & Plan (1) Acute respiratory failure with hypoxia: Plan: 30 y/o covid vaccinated female w/ morbid obesity who presents w/ covid pneumonia symptoms started approximately 12/23 - very high oxygen requirement at time of admission, 60L and 100%, tachypnea, accessory muscle use,now down to 1-2 L /nc biggest issue is weakness possible steroid myopathy still shakey walking around her room waiting a PT OT evaluation continue treatment for COVID with will DC these medications of dexamethasone and baricitinib in case her causing her compounding her weakness discussed realistic expectations with patient, will likely be here all this week to slowly improve and recover (2) COVID-19: Plan: Moderna vaccine in April 2020 Prior to this admission she was sick for about 10 days , worsening dyspnea the past 48 hours prior to admission CXR with diffuse bilateral infiltrates dexamethasone 6mg IV daily, started 12/30 stop 01/08/2021 baricitinib daily started 12/30. stop 01/08/2021 Remdesivir per protocol,completed eating well CRP down to 1.6 from 13, huge improvement and clinically she is much better (3) ARDS (adult respiratory distress syndrome): Plan: bilateral infiltrates, FiO2 of 100% required initially now resolving (4) Diabetes mellitus type 2, uncontrolled: Plan: - BSG in the 300s and serum ketones elevated. no anion gap - glycemic consult Lantus, NPH, Novolog SS (initially did require insulin drip) diabetic diet sugars labile, patient seen by diabetic nurse educator who recommends the time of discharge to supply a verio test strips to check her glucose 3 times a day Delica lancets Lantus Solostar pen for 1 time a day Lantus administration with 32-gauge times needlesdose of Lantus will be based upon how she does in the hospital here (5) Sciatica: Plan: impoved with will try Toradol, Ultram Lidoderm patch Pain is resolved (6) Heterozygous factor V Leiden mutation: Plan: - no prior VTE hx - slightly elevated VTE risk at baseline; prior to starting Baracitinib, discussed w/ pulm and pharmacy Lovenox BID would consider Xarelto 10mg 30 days on discharge (7) Hypothyroidism: Plan: - continue home levothyroxine (8) Obesity: Plan: - chronic (9) PCOS (polycystic ovarian syndrome): Plan: - chronic (10) Anxiety disorder: Plan: - continue home venlafaxine Plan: FEN/GI: DM2. No maintenance IV fluids. ppx: Lovenox 40mg SQ BID (120.6kg, 40.4 BMI) code: full dispo: downgrade to medical covid Admission and Anticipated Discharge Date Admission Date: December 30, 2020 Subjective pt is having improving oxygen requirements but is very weak, will be coming off restriction 01/09/21 Review of Systems Review of Systems: Mild distress and fatigue no headache, no visual changes no speech or swallowing issues no chest pain, pressure or palpitations no shortness of breath, cough or wheezes no abdominal pain, nausea or vomiting, diarrhea or constipation no dysuria, hematuria or frequency no focal joint pain or swelling no back pain, CVA tenderness or radicular pain no bruising, bleeding or rashes no focal signs of weakness or numbness or altered sensation no complaints of anxiety or depression.. Physical Exam Physical Exam: The patient appeared well nourished and normally developed. Vital signs as documented. Head exam is normocephalic atraumatic Neck is without JVD, thyromegaly, or carotid bruits. Lungs are scant rales were clear with deep breaths Cardiac exam, Rhythm is regular.. No murmurs, rubs or gallops. Abdominal exam reveals normal bowel sounds, soft non tender, no masses Extremities are nonedematous and both pedal pulses are present Neurologic exam is alert and oriented, no focal loss of strength or sensation Skin is without bruises or rashes Psychologically is without concerns for anxiety or depression Results & Data Results & Data ([facility]) Vital Signs (Past 12 Hours) Vital Signs Temp Pulse Resp BP Pulse Ox 01/08/21 07:23 97.9 F 63 16 96/61 L 94 PG Care Time/CCT Total # of Minutes Spent Total Time Spent with Patient: Total time spent is greater than 50% in coordination of care (as documented) at patient's floor/unit and/or counseling patient: Coding Level of Care Code 63243 Subseq Hosp Care Lvl 2 Diagnoses Acute respiratory failure with hypoxia J96.01 COVID-19 U07.1 ARDS (adult respiratory distress syndrome) J80 Diabetes mellitus type 2, uncontrolled E11.65 Sciatica M54.30 Heterozygous factor V Leiden mutation D68.51 Hypothyroidism E03.9 Obesity E66.9 PCOS (polycystic ovarian syndrome) E28.2 Anxiety disorder F41.9
[2021-01-08] MEDS ORDERED: INSULIN GLARGINE SOLOSTAR 100 UNITS/ML 3 ML PEN SC SCH (21:00)
[2021-01-09] MEDS: LEVOTHYROXINE SODIUM 25 MCG TABLET PO SCH (06:03)
[2021-01-09] MEDS: CARBOHYDRATES FOR HYPOGLYCEMIA PO PRN ×2 (08:30→08:45)
[2021-01-09] MEDS: VENLAFAXINE HCL XR 75 MG CAPXR PO SCH (08:38)
[2021-01-09] MEDS: LIDOCAINE 5% 1 PATCH TD SCH (08:38)
[2021-01-09] MEDS: ENOXAPARIN INJ 40 MG/0.4 ML SYR SQ SCH (08:42)
[2021-01-09] MEDS: POTASSIUM CHLORIDE CRTAB 20 MEQ TABCR PO SCH (08:52)
[2021-01-09] MEDS ORDERED: INSULIN GLARGINE SOLOSTAR 100 UNITS/ML 3 ML PEN SC SCH ×2 (09:00→09:30)
[2021-01-09] MEDS: INSULIN ASPART 100 UNITS/ML 3 ML PEN SC SCH ×2 (09:15→13:45)
--- NOTE | 2021-01-09 15:16 | Pharmacy Report ---
Pharmacy Glycemic Short Note 2 - Date of Service January 09, 2021 - Glycemic Short BSG Results (Last 24 hours): 01/08/21 01/08/21 01/09/21 17:29 20:39 08:22 POC Glucose 140 H 181 H 51 L* 01/09/21 01/09/21 01/09/21 08:25 08:45 09:03 POC Glucose 56 L* 63 L* 84 01/09/21 11:50 POC Glucose 142 H OUTPATIENT ANTIDIABETIC REGIMEN: * Glipizide 10 mg BID * metformin 1 gm PO BID * HbA1C = 11.4% ASSESSMENT: 01/09: * Pt received total 183 units of insulin yesterday; 28 units Lantus + 65 units of NPH and 90 units of bolus. * IV Dex was discontinued after AM dose yesterday. NPH discontinued today. * In spite of Lantus dose at HS being reduced and Novolog HS carb ratio loosened yesterday, patient still became hypoglycemic this AM at 51 mg/dl. Lantus HS dose discontinued and AM dose reduced today. * Since IV steroid is discontinued, Novolog CR was loosened today AM. HS Novolog parameters loosened further. 01/08: * Patient received total 250 units of insulin yesterday: 36 units of Lantus + 60 units (total 96 units basal) and 154 units bolus. * Fasting BSG was low this AM at 65 mg/dl. Lantus HS dose reduced. * Since dinner BSG continue to be elevated, NPH dose increased slightly again th is AM. Novolog CR tightened further AC but loosened at HS. 01/07/21 * Ms Esparza received 178 units of insulin yesterday. * 36 units of basal insulin with Lantus * 55 units of NPH insulin for steroid coverage * 87 units of bolus insulin with Novolog * Ongoing BSG trend has been fasting BSG at or slightly below goal range, with hyperglycemia in the evening. * Novolog parameters were adjusted yesterday morning to provide additional carb coverage. * NPH increased slightly this morning to assist with better glycemic control through the afternoon/evening. PLAN FOR INPATIENT GLYCEMIC CONTROL: * Hold outpatient oral diabetes medications * Basal insulin: reduced * Lantus 15 units SQ QAM * HS Lantus discontinued * NPH discontinued * Bolus insulin: loosened CR * NovoLog per scale ACHS or Q6hrs while NPO * Goal Range: Low 110 mg/dL - High 140 mg/dL * Correction Factor: 15 mg/dL/unit (30 mg/dL/unit at HS) * Nutritional / Prandial insulin per carb ratio of 1 unit per 5 grams CHO consumed AC and 1 unit per 10 gms CHO at HS PLAN FOR DISCHARGE: * A1c = 11.4% * A1c is greater than or equal to 10% --> consider triple therapy with metformin + basal insulin + (GLP1-RA OR prandial insulin). May need to continue additional antidiabetic agent based on patient specific factors (efficacy, hypo risk, weight gain/loss, side effects, cost) * Support Patient Self-Management * Healthy Lifestyle (diet, exercise, and smoking cessation) * Disease self-management (SMBG) * Prevention of complications (BP, Lipid goals, Immunizations) * Consider outpatient Diabetes Self-Management Education & Support * Most patients on multiple-dose insulin (MDI) should SMBG * Prior to meals and snacks * At bedtime * Prior to exercise * When they suspect low blood glucose * After treating low blood glucose until they are normoglycemic * Prior to critical tasks such as driving * Occasionally postprandially
--- NOTE | 2021-01-09 19:00 | Discharge Summary ---
Date of Service January 09, 2021 Admission HPI Per Admitting Provider Anita Esparza is a 30 y/o female w/ PMHx of obesity, PCOS, rosacea, heterozygous factor V Leiden, HLD, uncontrolled DM2, anxiety/depression, and hypothyroidism who presents w/ worsening cough and dyspnea x 10 days. Patient is vaccinated w/ Moderna and tested covid positive. She initially started w/ sinus symptoms. Several days later, she developed fevers up to 104F. Fevers resolved 2 days ago. In the past several days, her complaint has been worsening dyspnea on exertion. Cough is nonproductive and has improved slightly. + decreased smell, but regaining. She has had poor appetite and has stopped taking her PO diabetes medications for almost a week. She has taken ~1 day of Medrol dose pack in the outpatient setting after seeing her PCP via telehealth yesterday. Denies hx of COPD and has never smoked tobacco. Patient's listed asthma is situational and mostly related to environment triggers specifically cinnamon. S/p dose of 8mg IV dexamethasone in ED. Principal Diagnosis acute respiratory distress with hypoxia acute respiratory distress syndrome covid pneumonia uncontrolled diabetes discharged on insulin morbid obesity Discharge Exam The patient appeared well Vital signs as documented. Lungs are with scant crackles appear unlabored Cardiac exam, Rhythm is regular.. No murmurs, rubs or gallops. Abdominal exam reveals normal bowel sounds, soft non tender, no masses Extremities are nonedematous and both pedal pulses are normal. Neurologic exam is alert and oriented, no focal loss of strength or sensation Skin is without bruises or rashes Psychologically is without concerns for anxiety or depression. Discharge Data Allergies Allergy/AdvReac Type Severity Reaction Status Date / Time Cephalosporins Allergy Severe Hives Verified 12/30/20 18:51 cinnamon Allergy Severe Hives Verified 12/30/20 18:51 doxycycline Allergy Severe Hives Verified 12/30/20 18:51 moxifloxacin Allergy Severe HIVES Verified 12/30/20 18:51 guaifenesin [From Mucinex] Allergy Mild Unknown Verified 12/30/20 18:51 azithromycin AdvReac Unknown Verified 12/30/20 18:51 baclofen AdvReac tired and Verified 12/30/20 18:51 fatigue Consultations 12/30/20 16:59 ED Decision to Admit Stat 12/30/20 22:30 Consult Pulmonology Routine Diabetes Follow up Diabetes Follow-up Needed for HgbA1c >9% Hospital Course (1) Acute respiratory failure with hypoxia: 30 y/o covid vaccinated female w/ morbid obesity who presents w/ covid pneumonia symptoms started approximately 12/23 - very high oxygen requirement at time of admission, 60L and 100%, tachypnea, accessory muscle use, 2 step oxygen testing prior to discharge shows she needs no additional oxygen supplementation treatment for COVID included dexamethasone and baricitinib Patient was at acute respiratory distress syndrome which recovered. Her hospital stay was approximately 10 days. She is markedly deconditioned the end of her illness and will need time off work as she works at a physically demanding job (2) COVID-19: Moderna vaccine in April 2020 Prior to this admission she was sick for about 10 days , worsening dyspnea the past 48 hours prior to admission CXR with diffuse bilateral infiltrates dexamethasone 6mg IV daily, started 12/30 stop 01/08/2021 baricitinib daily started 12/30. stop 01/08/2021 Remdesivir per protocol,completed CRP down to 1.6 from 13, huge improvement and clinically she is much better (3) ARDS (adult respiratory distress syndrome): bilateral infiltrates, FiO2 of 100% now resolved (4) Diabetes mellitus type 2, uncontrolled: - BSG in the 300s and serum ketones elevated. no anion gap - glycemic consult recommends going home on Lantus with continued outpatient follow-up. We will also continue her Metformin at time of going home diabetic nurse educator recommends the time of discharge to supply a verio test strips to check her glucose 3 times a day Delica lancets Lantus Solostar pen for 1 time a day Lantus administration with 32-gauge times 5/32 needles (5) Sciatica: impoved with Prescription for home Lidoderm patch P (6) Heterozygous factor V Leiden mutation: - no prior VTE hx - slightly elevated VTE risk at baseline; prior to starting Baracitinib, discussed w/ pulm and pharmacy (7) Hypothyroidism: - continue home levothyroxine (8) Obesity: - chronic morbid obesity with BMI of [address] her at risk for Covid and also uncontrolled diabetes patient was educated on beginning attempts at trying to reduce her weight (9) PCOS (polycystic ovarian syndrome): - chronic (10) Anxiety disorder: - continue home venlafaxine Total Time Total Time Spent Total Time Spent (In Minutes): It required greater than 30 minutes to prepare this patient for discharge Discharge Plan Discharge Items Patient Disposition: Home - Self-Care Reason For Visit: COVID PNEUMONIA Discharge Diagnosis: Respiratory failure covid pneumonia Activity: Per Instructions section Activity Comment: slowly increase your activity Non-emergency contact: Primary Care Provider Call non-emergency contact if: your symptoms worsen and you have a fever Follow-up/Referrals: Jim Gilbert MD [Physician] - (Dagmar Kirkland did see in hospital) Pinky Webb MD [Primary Care Provider] - Diet: Regular Addtl Attending Provider Instructions: Please rest and recover, good food, good hydration, rest when tired off work for 2 additional weeks You are no longer on isolation from covid infection for your diabetes, take lantus injection once a day and your metformin, if your glucoses are out of range contact the diabetes office and they can further adjust your treatment Pending Studies at Discharge: No Visit Report Forms: Albuterol Inhaler Instructions Stand-Alone Forms: My [facility] [employer], Smoking Cessation Medications and DC Order Prescriptions: New lidocaine 5 % Adhesive Patch,Medicated 1 patch transdermal QAM Qty: 15 RF: 0 Lantus Solostar U-100 Insulin 100 unit/mL (3 mL) Insulin Pen 15 unit SC QAM Qty: 15 RF: 5 (DME) needle (disp) 32 gauge 32 gauge x 5/16" needle See Rx Instructions .Route Qty: 100 RF: 0 Continued levothyroxine 25 mcg tablet 25 mcg PO QAM Qty: 90 RF: 0 venlafaxine 75 mg capsule,extended release 24hr 75 mg PO DAILY Qty: 90 RF: 1 fluticasone propionate [Flonase Allergy Relief] 50 mcg/actuation spray,suspension 2 spray INTNAS DAILY Qty: 9.9 RF: 3 metformin 500 mg tablet extended release 24 hr 1,000 mg PO BID Qty: 360 RF: 3 lorazepam 0.5 mg tablet 0.5 mg PO DAILY PRN (Reason: Anxiety) RF: 0 albuterol sulfate 90 mcg/actuation HFA aerosol inhaler 2 puffs inhalation Q4H PRN (Reason: Shortness Of Breath Or Wheezing) RF: 0 albuterol sulfate 90 mcg/actuation HFA aerosol inhaler 2 puffs INH Q4H PRN (Reason: cough) Qty: 8.5 RF: 0 (DME) OneTouch Verio test strips Strip See Rx Instructions .ROUTE .MEDSUPPLY Qty: 180 RF: 3 (DME) lancets [OneTouch Delica Lancets] 33 gauge misc See Dose Instructions .ROUTE .MEDSUPPLY Qty: 100 RF: 0 Discontinued cetirizine [Zyrtec] 10 mg tablet 10 mg PO DAILY Qty: 30 RF: 3 methylprednisolone [Medrol (Thom)] 4 mg tablets,dose pack 4 mg PO DAILY Qty: 21 RF: 0 benzonatate [Tessalon Perles] 100 mg capsule 100 mg PO TID PRN (Reason: cough) Qty: 30 RF: 0 glipizide 10 mg tablet 10 mg PO BID Qty: 180 RF: 3 Discharge Orders: Discharge Order (Routine); Ordered 01/09/21 Ordered By: Richard Godinez/Other Patient Handouts: COVID-19 Home Care, Preventing Deep Vein Thrombosis, ED Using an Injection Pen Admission Data Admit Date/Time: 12/30/20 18:31 Attending Provider: Richard Mcneal Admit Provider: Deepak Osorio Primary Care Provider: Pinky Webb V. Other Providers: Ivan Garcia ; Blanco Stapleton Other Interventions: Discharge Summary Assessment (RN) Last Done: 01/09/21 13:55 Coding Level of Care Code D/C DAY MANAGEMENT >30 MINS Diagnoses Acute respiratory failure with hypoxia J96.01 COVID-19 U07.1 ARDS (adult respiratory distress syndrome) J80 Diabetes mellitus type 2, uncontrolled E11.65 Sciatica M54.30 Heterozygous factor V Leiden mutation D68.51 Hypothyroidism E03.9 Obesity E66.9 PCOS (polycystic ovarian syndrome) E28.2 Anxiety disorder F41.9
[2021-01-10] MEDS ORDERED: INSULIN GLARGINE SOLOSTAR 100 UNITS/ML 3 ML PEN SC SCH (09:00)
== END 2021-01-09 14:55 | disposition home or self-care (01) | DRG 177 ==
LOC: ED 15:41 → SUATTDRO 18:31 → 2S 18:31 → 3W 01-05 19:06